=== PATIENT | male | born 1955 | race Hispanic/Latino ===

== ENCOUNTER 2017-08-17 06:30 | Inpatient (IN) | payer OTHER ==
--- NOTE | 2017-08-17 07:09 | XRay Report ---
FINAL REPORT EXAM: XR CHEST ROUTINE 2V HISTORY: Shortness of breath TECHNIQUE: PA and lateral views of the chest were submitted. FINDINGS: The heart is mildly enlarged. The lungs are not overtly congested. There is a small left-sided effusion. There are no localized infiltrates. The skeletal structures reveal disc degeneration in the thoracic spine IMPRESSION: Mild cardiomegaly. Small left-sided effusion. No localized infiltrates or congestion.
[2017-08-17 07:20] LABS: BUN/Creatinine Ratio 25; Blood Urea Nitrogen 28 mg/dL (9-20); Calcium 8.9 mg/dL (8.4-10.2); Hemolysis Index 4
[2017-08-17 07:23] LABS: Basophils # (Auto) 0.1 K/mm3 (0.0-0.1); Basophils % (Auto) 0.9 % (0.0-1.8); Eosinophils # (Auto) 0.2 K/mm3 (0.0-0.4); Eosinophils % (Auto) 1.8 % (0.0-4.3); Hematocrit 45.8 % (35.5-45.6); Hemoglobin 15.1 gm/dl (11.8-15.2); Lymphocytes # (Auto) 1.9 K/mm3 (1.2-5.4); Lymphocytes % (Auto) 20.9 % (13.4-35.0); Mean Corpuscular HGB Conc 33 % (32-34); Mean Corpuscular Hemoglobin 29 pg (28-32); Mean Corpuscular Volume 89 fl (84-94); Monocytes # (Auto) 1.1 K/mm3 (0.0-0.8); Monocytes % (Auto) 12.4 % (0.0-7.3); Platelet Count 242 K/mm3 (140-440); Red Blood Count 5.17 M/mm3 (3.65-5.03); Red Cell Distribution Width 14.2 % (13.2-15.2)
[2017-08-17] MEDS ORDERED: LASIX IV ONE (11:09)
[2017-08-17] MEDS ORDERED: LOPRESSOR IV ONE (11:12)
[2017-08-17 11:38] LABS: INR 1.28 (0.87-1.13); Partial Thromboplastin Time 31.1 Sec. (24.2-36.6)
--- NOTE | 2017-08-17 12:49 | Emergency Department Report ---
ED Shortness of Breath HPI - General Chief Complaint: Dyspnea/Respdistress Stated Complaint: LANRE Time Seen by Provider: 08/17/17 11:02 Source: patient, EMS Mode of arrival: Stretcher Limitations: Physical Limitation - History of Present Illness Initial Comments: Patient is a tra-woly-exs male with past medical history of CHF hypertension who is not on Lasix at this time who is presenting with shortness of breath. Patient states he has short shortness of breath with exertion with some chest tightness has been going on for approximate 4 days. Patient states that also at night while he is laying flat he has shortness of breath and feels a warm sensation in the chest that he initially was distributing to GERD however patient states that something more sinister going on at this time. Patient denies any fevers chills cough nausea vomiting at this time. - Related Data Home Medications Medication Instructions Recorded Confirmed Last Taken Insulin NPH, Human [NovoLIN N] 45 unit SUB-Q QAM 10/08/13 08/17/17 10/08/13 Insulin NPH, Human [NovoLIN N] 45 unit SUB-Q QPM 10/08/13 08/17/17 10/07/13 Previous Rx's Medication Instructions Recorded Last Taken Type Aspirin EC [Aspirin Enteric Coated 81 mg PO QDAY #30 tablet. 10/09/13 Unknown Rx TAB] Carvedilol [Coreg] 6.25 mg PO BID #60 tablet 10/09/13 Unknown Rx Lisinopril [Zestril TAB] 40 mg PO QDAY #30 tablet 10/10/13 Unknown Rx Lovastatin [Mevacor] 40 mg PO QDAY #30 tablet 10/10/13 Unknown Rx Allergies Allergy/AdvReac Type Severity Reaction Status Date / Time No Known Allergies Allergy Verified 08/17/17 06:49 ED Review of Systems ROS: Stated complaint: LANRE Other details as noted in HPI Comment: All other systems reviewed and negative ED Past Medical Hx - Past Medical History Hx Hypertension: Yes Hx Congestive Heart Failure: Yes Hx Diabetes: Yes Additional medical history: Hep C - Surgical History Additional Surgical History: Back Surgery - Social History Smoking Status: Never Smoker Substance Use Type: Alcohol - Medications Home Medications: Home Medications Medication Instructions Recorded Confirmed Last Taken Type Insulin NPH, Human [NovoLIN N] 45 unit SUB-Q QAM 10/08/13 08/17/17 10/08/13 History Insulin NPH, Human [NovoLIN N] 45 unit SUB-Q QPM 10/08/13 08/17/17 10/07/13 History Aspirin EC [Aspirin Enteric Coated 81 mg PO QDAY #30 tablet. 10/09/13 Unknown Rx TAB] Carvedilol [Coreg] 6.25 mg PO BID #60 tablet 10/09/13 08/17/17 Unknown Rx Lisinopril [Zestril TAB] 40 mg PO QDAY #30 tablet 10/10/13 08/17/17 Unknown Rx Lovastatin [Mevacor] 40 mg PO QDAY #30 tablet 10/10/13 08/17/17 Unknown Rx ED Physical Exam - General Limitations: Physical Limitation General appearance: alert, in no apparent distress - Head Head exam: Present: atraumatic, normocephalic - Eye Eye exam: Present: normal appearance - ENT ENT exam: Present: mucous membranes moist - Neck Neck exam: Present: normal inspection - Respiratory Respiratory exam: Present: rales. Absent: normal lung sounds bilaterally, respiratory distress, wheezes, rhonchi, stridor - Cardiovascular Cardiovascular Exam: Present: regular rate, normal rhythm, other (+1 pedal edema extending up to the ankles). Absent: systolic murmur, diastolic murmur, rubs, gallop - GI/Abdominal GI/Abdominal exam: Present: soft, normal bowel sounds. Absent: distended, tenderness, guarding, rebound, rigid - Rectal Rectal exam: Present: deferred - Extremities Exam Extremities exam: Present: normal inspection - Back Exam Back exam: Present: normal inspection - Neurological Exam Neurological exam: Present: alert, oriented X3 - Psychiatric Psychiatric exam: Present: normal affect, normal mood - Skin Skin exam: Present: warm, dry, intact, normal color. Absent: rash ED Course Vital Signs 08/17/17 08/17/17 08/17/17 06:46 11:20 11:34 Temperature 97.6 F Pulse Rate 91 H 137 H 137 H Respiratory 17 Rate Blood Pressure 141/98 122/99 Blood Pressure 122/99 [Right] O2 Sat by Pulse 100 95 Oximetry 08/17/17 08/17/17 08/17/17 11:36 11:46 12:00 Temperature Pulse Rate 134 H 142 H Respiratory 16 14 23 Rate Blood Pressure 128/94 122/99 Blood Pressure [Right] O2 Sat by Pulse 98 98 Oximetry 08/17/17 08/17/17 12:16 12:30 Temperature Pulse Rate 124 H 122 H Respiratory 13 22 Rate Blood Pressure 122/99 128/94 Blood Pressure [Right] O2 Sat by Pulse 96 94 Oximetry ED Medical Decision Making - Lab Data Result diagrams: 08/17/17 06:51 08/17/17 06:51 Lab Results 08/17/17 08/17/17 08/17/17 Range/Units 06:51 06:51 06:51 WBC 9.2 (4.5-11.0) K/mm3 RBC 5.17 H (3.65-5.03) M/mm3 Hgb 15.1 (11.8-15.2) gm/dl Hct 45.8 H (35.5-45.6) % MCV 89 (84-94) fl MCH 29 (28-32) pg MCHC 33 (32-34) % RDW 14.2 (13.2-15.2) % Plt Count 242 (140-440) K/mm3 Lymph % (Auto) 20.9 (13.4-35.0) % Burt % (Auto) 12.4 H (0.0-7.3) % Eos % (Auto) 1.8 (0.0-4.3) % Baso % (Auto) 0.9 (0.0-1.8) % Lymph # 1.9 (1.2-5.4) K/mm3 [place]urt # 1.1 H (0.0-0.8) K/mm3 Eos # 0.2 (0.0-0.4) K/mm3 Baso # 0.1 (0.0-0.1) K/mm3 Seg Neutrophils % 64.0 (40.0-70.0) % Seg Neutrophils # 5.9 (1.8-7.7) K/mm3 PT (12.2-14.9) Sec. INR (0.87-1.13) APTT (24.2-36.6) Sec. Sodium 138 (137-145) mmol/L Potassium 5.1 H (3.6-5.0) mmol/L Chloride 100.2 (98-107) mmol/L Carbon Dioxide 25 (22-30) mmol/L Anion Gap 18 mmol/L BUN 28 H (9-20) mg/dL Creatinine 1.1 (0.8-1.5) mg/dL Estimated GFR > 60 ml/min BUN/Creatinine Ratio 25 % Glucose 111 H (75-100) mg/dL Calcium 8.9 (8.4-10.2) mg/dL Troponin T 0.025 (0.00-0.029) ng/mL NT-Pro-B Natriuret Pep 49414 H (0-900) pg/mL 08/17/17 Range/Units 11:10 WBC (4.5-11.0) K/mm3 RBC (3.65-5.03) M/mm3 Hgb (11.8-15.2) gm/dl Hct (35.5-45.6) % MCV (84-94) fl MCH (28-32) pg MCHC (32-34) % RDW (13.2-15.2) % Plt Count (140-440) K/mm3 Lymph % (Auto) (13.4-35.0) % [place]urt % (Auto) (0.0-7.3) % Eos % (Auto) (0.0-4.3) % Baso % (Auto) (0.0-1.8) % Lymph # (1.2-5.4) K/mm3 Burt # (0.0-0.8) K/mm3 Eos # (0.0-0.4) K/mm3 Baso # (0.0-0.1) K/mm3 Seg Neutrophils % (40.0-70.0) % Seg Neutrophils # (1.8-7.7) K/mm3 PT 16.7 H (12.2-14.9) Sec. INR 1.28 H (0.87-1.13) APTT 31.1 (24.2-36.6) Sec. Sodium (137-145) mmol/L Potassium (3.6-5.0) mmol/L Chloride (98-107) mmol/L Carbon Dioxide (22-30) mmol/L Anion Gap mmol/L BUN (9-20) mg/dL Creatinine (0.8-1.5) mg/dL Estimated GFR ml/min BUN/Creatinine Ratio % Glucose (75-100) mg/dL Calcium (8.4-10.2) mg/dL Troponin T (0.00-0.029) ng/mL NT-Pro-B Natriuret Pep (0-900) pg/mL - EKG Data -: EKG Interpreted by Me - EKG Data Interpretation: other (EKG shows A. fib with RVR with a rate of 139, axis is rightward there is a left bundle branch block delay patient has T-wave inversions inferior lateral leads) - Radiology Data interpreted by me: Chest x-ray shows cardiomegaly with pulmonary vascular congestion and small right-sided pleural effusion - Medical Decision Making Patient was given a dose of Lasix here in the emergency department. Patient was given Lopressor 5 mg with decreased heart rate to approximately 110 was then subsequently then elevated again. We will try to start the patient on diltiazem drip. There was a slight delay with pharmacy with the diltiazem drip secondary to the computer system thinking that we did not have this medication. Patient will be admitted to the hospitalist service under Dr. Recio. Critical Care Time: Yes Critical care time in (mins) excluding proc time.: 30 Critical care attestation.: If time is entered above; I have spent that time in minutes in the direct care of this critically ill patient, excluding procedure time. ED Disposition Clinical Impression: Atrial fibrillation with RVR, Chest pain at rest CHF exacerbation Qualifiers: Heart failure type: unspecified Qualified Code(s): I50.9 - Heart failure, unspecified Disposition: OP ADMIT IP TO THIS HOSP Is pt being admited?: Yes Does the pt Need Aspirin: Yes Condition: Stable Instructions: Chest Pain (ED) Referrals: PRIMARY CARE, [Primary Care Provider] - 3-5 Days
[2017-08-17] MEDS ORDERED: ASPIRIN PO ONE (12:51)
[2017-08-17] MEDS ORDERED: CARDIZEM/D5W 100MG/100ML 100 MG/100 ML BAG IV ONE (12:55)
[2017-08-17] MEDS ORDERED: ATIVAN PO ONE (12:57)
[2017-08-17] MEDS ORDERED: CARDIZEM/D5W 100MG/100ML 100 MG/100 ML BAG IV SCH (13:00)
--- NOTE | 2017-08-17 13:00 | History and Physical Report ---
History of Present Illness Chief complaint: Its hard to breathe History of present illness: 62 YO Male with Diastolic CHF, HTN, Obesity, HCV, DM presents to ED for evaluation. Pt states that he has experienced shortness of breath for the past 4 days with persistently worsening symptoms over the past 2 days. Pt acknowledges Orthopnea/PND, Dypsnea on exertion, as well as tightness in his chest. Pt denies fever, chills, CP, Palpitations, NVD, Syncope, Prolonged travel /immobility, individual/family history of DVT/PE, unilateral leg swelling, calf pain. Pt seen and evaluated in ED and found to have CHF decompensation. Pt admitted to telemetry. Cardiology consulted in ED. Past History Past Medical History: diabetes, heart failure, hepatitis, hypertension Past Surgical History: Other (back surgery) Social history: single. denies: smoking, alcohol abuse, prescription drug abuse Family history: no significant family history (reviewed) Medications and Allergies Allergies Allergy/AdvReac Type Severity Reaction Status Date / Time No Known Allergies Allergy Verified 08/17/17 06:49 Home Medications Medication Instructions Recorded Confirmed Last Taken Type Insulin NPH, Human [NovoLIN N] 45 unit SUB-Q QAM 10/08/13 08/17/17 10/08/13 History Insulin NPH, Human [NovoLIN N] 45 unit SUB-Q QPM 10/08/13 08/17/17 10/07/13 History Aspirin EC [Aspirin Enteric Coated 81 mg PO QDAY #30 tablet. 10/09/13 Unknown Rx TAB] Carvedilol [Coreg] 6.25 mg PO BID #60 tablet 10/09/13 08/17/17 Unknown Rx Lisinopril [Zestril TAB] 40 mg PO QDAY #30 tablet 10/10/13 08/17/17 Unknown Rx Lovastatin [Mevacor] 40 mg PO QDAY #30 tablet 10/10/13 08/17/17 Unknown Rx Active Meds: Active Medications Diltiazem HCl (Cardizem/D5w 100mg/100ml) 100 mg in 100 mls @ 5 mls/hr IV TITR TIMMY; Protocol Review of Systems Constitutional: weight gain, no weight loss, no fever, no chills, no sweats Ears, nose, mouth and throat: no ear pain, no ear discharge, no tinnitis, no decreased hearing, no nose pain, no nasal congestion Cardiovascular: orthopnea, shortness of breath, dyspnea on exertion, paroxysmal nocturnal dyspnea, decreased exercise tolerance, no palpitations, no rapid/ irregular heart beat Respiratory: no cough, no cough with sputum, no excessive sputum, no hemoptysis Gastrointestinal: no nausea, no vomiting, no diarrhea, no constipation, no change in bowel habits Genitourinary Male: no hematuria, no flank pain, no discharge, no urinary frequency, no urinary hesitancy Rectal: no pain Musculoskeletal: no neck stiffness, no neck pain, no shooting arm pain, no arm numbness/tingling, no low back pain, no shooting leg pain Integumentary: no rash, no pruritis, no redness, no sores, no wounds, no jaundice Neurological: no transient paralysis, no weakness, no parathesias, no numbness, no tingling, no seizures, no syncope Psychiatric: no anxiety, no memory loss, no change in sleep habits, no sleep disturbances, no insomnia, no hypersomnia, no change in appetite Endocrine: no cold intolerance, no heat intolerance, no polyphagia, no excessive thirst, no polydipsia, no polyuria, no nocturia Hematologic/Lymphatic: no easy bruising, no easy bleeding, no lymphadenopathy, no lymphedema Allergic/Immunologic: no urticaria, no allergic rhinitis, no wheezing Exam - Constitutional Vitals: Temp Pulse Resp BP Pulse Ox 97.6 F 122 H 22 128/94 94 08/17/17 06:46 08/17/17 12:30 08/17/17 12:30 08/17/17 12:30 08/17/17 12:30 General appearance: Present: mild distress - EENT Eyes: Present: PERRL ENT: hearing intact, clear oral mucosa - Neck Neck: Present: supple, normal ROM - Respiratory Respiratory: bilateral: diminished - Cardiovascular Heart Sounds: Present: S1 & S2. Absent: rub, click - Extremities Extremities: pulses symmetrical, No edema Peripheral Pulses: within normal limits - Abdominal General gastrointestinal: Present: soft Male genitourinary: Present: normal - Integumentary Integumentary: Present: clear, warm, dry - Musculoskeletal Musculoskeletal: generalized weakness - Psychiatric Psychiatric: appropriate mood/affect, intact judgment & insight - Neurologic Neurologic: CNII-XII intact, moves all extremities Results - Labs CBC & Chem 7: 08/17/17 06:51 08/17/17 14:58 Labs: Abnormal lab results 08/17/17 08/17/17 08/17/17 Range/Units 06:51 06:51 06:51 RBC 5.17 H (3.65-5.03) M/mm3 Hct 45.8 H (35.5-45.6) % [place] % (Auto) 12.4 H (0.0-7.3) % [place] # 1.1 H (0.0-0.8) K/mm3 PT (12.2-14.9) Sec. INR (0.87-1.13) Potassium 5.1 H (3.6-5.0) mmol/L BUN 28 H (9-20) mg/dL Glucose 111 H (75-100) mg/dL NT-Pro-B Natriuret Pep 55800 H (0-900) pg/mL 08/17/17 Range/Units 11:10 RBC (3.65-5.03) M/mm3 Hct (35.5-45.6) % [place] % (Auto) (0.0-7.3) % [place] # (0.0-0.8) K/mm3 PT 16.7 H (12.2-14.9) Sec. INR 1.28 H (0.87-1.13) Potassium (3.6-5.0) mmol/L BUN (9-20) mg/dL Glucose (75-100) mg/dL NT-Pro-B Natriuret Pep (0-900) pg/mL Assessment and Plan - Patient Problems (1) Atrial fibrillation with RVR Current Visit: Yes Status: Acute Plan to address problem: IV Cardizem, change to AR cardizem, Cardiology consulted in ED, Admit to telemetry, continue rate control, (2) CHF exacerbation Current Visit: Yes Status: Acute Qualifiers: Heart failure type: diastolic Qualified Code(s): I50.33 - Acute on chronic diastolic (congestive) heart failure Plan to address problem: Cardiology consulted in ED, admit to telemetry, Strict I/O, diuresis, daily weight, Chest X ray,afterload reduction, thyroid panel, anticoagulation as per cardiology team. (3) Hypertension Current Visit: No Status: Chronic Qualifiers: Hypertension type: essential hypertension Qualified Code(s): I10 - Essential (primary) hypertension Plan to address problem: monitor bp q shift, resume prehospital antihypertensive therapy, continue medical management. (4) Obesity Current Visit: No Status: Chronic Qualifiers: Body mass index: BMI 31.0-31.9 Plan to address problem: Balanced diet, increased physical activity at discharge. (5) Diabetes mellitus Current Visit: No Status: Chronic Plan to address problem: consistent carbohydrate diet, insulin, accu check (6) DVT prophylaxis Current Visit: Yes Status: Acute Plan to address problem: SCD to BLE while in bed
[2017-08-17] MEDS ORDERED: SODIUM CHLORIDE FLUSH SYRINGE 10 ML IV PRN (13:07)
[2017-08-17] MEDS ORDERED: TYLENOL PO PRN (13:07)
[2017-08-17] MEDS ORDERED: ZOFRAN IV PRN (13:07)
[2017-08-17] MEDS ORDERED: PROVENTIL IH PRN (13:07)
[2017-08-17] MEDS ORDERED: D50W (25GM) Syringe IV PRN (15:30)
[2017-08-17] MEDS: CARDIZEM PO SCH ×3 (18:12→23:42)
[2017-08-17 18:49] LABS: Free T4 (Free Thyroxine) 1.35 ng/dL (0.76-1.46)
--- NOTE | 2017-08-17 18:52 | Emergency Department Report ---
Blank Doc - Documentation Documentation: Patient was a code met to the floor. Patient became hypoglycemic with a blood sugar of 28 and his IV access was not working. I attended to the patient on the floor. I was able to place a 20-gauge IV in the right antecubital area using ultrasound guidance. Patient's blood sugar did return to the 80s after the D50. Patient tolerated procedure well and was in stable condition at the time that I left the patient's bedside.
[2017-08-17] MEDS: LASIX IV SCH (19:30)
[2017-08-17] MEDS ORDERED: SODIUM CHLORIDE FLUSH SYRINGE 10 ML IV SCH (22:00)
[2017-08-17] MEDS: PRAVACHOL PO SCH (22:44)
[2017-08-17] MEDS: COREG PO SCH (22:44)
[2017-08-18] MEDS ORDERED: MILK OF MAGNESIA PO PRN (01:09)
[2017-08-18] MEDS: XANAX PO PRN (04:18)
[2017-08-18] MEDS: LASIX IV SCH ×2 (06:12→20:02)
[2017-08-18] MEDS: CARDIZEM PO SCH ×3 (06:12→18:00)
[2017-08-18] MEDS: COREG PO SCH ×2 (08:15→22:17)
[2017-08-18] MEDS ORDERED: ZESTRIL PO SCH ×2 (10:00→11:54)
[2017-08-18] MEDS ORDERED: LOVASTATIN 40 MG PO SCH (10:00)
[2017-08-18] MEDS: HALFPRIN EC PO SCH (10:55)
--- NOTE | 2017-08-18 11:43 | Progress Note ---
Assessment and Plan Assessment and Plan - Patient Problems (1) Atrial fibrillation with RVR Current Visit: Yes Status: Acute Plan to address problem: PO Cardizem, HR -117 and irregular, Cardiology consulted in ED, Telemetry, continue rate control, Echo for EF (2) CHF exacerbation Current Visit: Yes Status: Acute Qualifiers: Heart failure type: diastolic Qualified Code(s): I50.33 - Acute on chronic diastolic (congestive) heart failure Plan to address problem: Cardiology consulted ,telemetry, Strict I/O, diuresis, daily weight, Chest X ray ,afterload reduction, thyroid panel, anticoagulation as per cardiology team. Check EKG (3) Hypertension Current Visit: No Status: Chronic Qualifiers: Hypertension type: essential hypertension Qualified Code(s): I10 - Essential (primary) hypertension Plan to address problem: monitor bp q shift, resume prehospital antihypertensive therapy, continue medical management. (4) Obesity Current Visit: No Status: Chronic Qualifiers: Body mass index: BMI 31.0-31.9 Plan to address problem: Balanced diet, increased physical activity at discharge. (5) Diabetes mellitus Current Visit: No Status: Chronic Plan to address problem: consistent carbohydrate diet, insulin, accu check (6) DVT prophylaxis Current Visit: Yes Status: Acute Plan to address problem: SCD to BLE while in bed DispossitionProbable discharge tomorrow if rate controlled and cleared by Cardiology Subjective Date of service: 08/18/17 Principal diagnosis: A fib with rvr Interval history: Still has palpitations Objective - Constitutional Vitals: Vital Signs - 12hr 08/17/17 08/18/17 08/18/17 23:42 00:30 00:40 Temperature 94.8 F L Pulse Rate 94 H 59 L Respiratory 20 Rate Blood Pressure 125/86 113/79 Blood Pressure [Right] O2 Sat by Pulse 100 Oximetry 08/18/17 08/18/17 08/18/17 04:08 06:12 08:06 Temperature 98.0 F Pulse Rate 99 H 97 H 87 Respiratory 24 20 Rate Blood Pressure 115/81 115/81 88/62 Blood Pressure [Right] O2 Sat by Pulse 96 96 Oximetry 08/18/17 08/18/17 08:10 09:51 Temperature 98.0 F Pulse Rate 104 H Respiratory 20 Rate Blood Pressure Blood Pressure 91/69 [Right] O2 Sat by Pulse 97 93 Oximetry General appearance: Present: no acute distress, well-nourished - EENT Eyes: PERRL, EOM intact ENT: hearing intact, clear oral mucosa Ears: bilateral: normal - Neck Neck: supple, normal ROM - Respiratory Respiratory effort: normal Respiratory: bilateral: CTA - Breasts Breasts: normal - Cardiovascular Heart rate: 80 Rhythm: regular Heart Sounds: Present: S1 & S2. Absent: gallop, rub Extremities: no ischemia, pulses intact, No edema, normal color, Full ROM - Gastrointestinal General gastrointestinal: Present: soft, non-tender, non-distended, normal bowel sounds - Genitourinary Male genitourinary: normal - Integumentary Integumentary: clear, warm, dry - Musculoskeletal Musculoskeletal: 1, strength equal bilaterally - Neurologic Neurologic: moves all extremities - Psychiatric Psychiatric: memory intact, appropriate mood/affect, intact judgment & insight - Labs CBC & Chem 7: 08/17/17 06:51 08/17/17 14:58 Labs: Abnormal lab results 08/17/17 08/17/17 08/17/17 Range/Units 06:51 14:57 14:58 Glucose 47 L (75-100) mg/dL POC Glucose < 40 L (70-105) NT-Pro-B Natriuret Pep 05623 H (0-900) pg/mL 08/17/17 08/17/17 08/17/17 Range/Units 15:35 18:33 20:49 Glucose (75-100) mg/dL POC Glucose 123 H < 40 L 179 H (70-105) NT-Pro-B Natriuret Pep (0-900) pg/mL 08/18/17 08/18/17 Range/Units 03:37 06:40 Glucose (75-100) mg/dL POC Glucose 381 H 204 H (70-105) NT-Pro-B Natriuret Pep (0-900) pg/mL - Imaging and cardiology EKG: report reviewed
[2017-08-18] MEDS ORDERED: ZOFRAN IV PRN (11:51)
[2017-08-18] MEDS ORDERED: SODIUM CHLORIDE FLUSH SYRINGE 10 ML IV PRN (11:51)
[2017-08-18] MEDS ORDERED: TYLENOL PO PRN (11:51)
--- NOTE | 2017-08-18 12:33 | Consultation ---
History of Present Illness Consult date: 08/18/17 Consult reason: atrial fibrillation, congestive heart failure History of present illness: This is a 62yr old male who gives a history of hypertension and diabetes who is admitted with shortness of breath and rapid atrial fibrillation. He associates shortness of breath with coughs, chest pain, palpitations and lower extremity edema over the last several days. A chest xray reports mild cardiomegaly with a small left side pleural effusion. His ECG shows rapid atrial fibrillation with a left bundle branch block. The duration of his atrial fibrillation is unknown. TSH is normal. Patient denies history of arrhythmias. Patient underwent extensive cardiac workup in 2013. A cardiac cath reports normal coronaries with a preserved ejection fraction. Most importantly an echocardiogram showed a dilated left atrium with a normal left ventricular systolic function, ejection fraction 55%. Past History Social history: single Medications and Allergies Allergies Allergy/AdvReac Type Severity Reaction Status Date / Time No Known Allergies Allergy Verified 08/17/17 06:49 Home Medications Medication Instructions Recorded Confirmed Last Taken Type Insulin NPH, Human [NovoLIN N] 45 unit SUB-Q QAM 10/08/13 08/17/17 10/08/13 History Insulin NPH, Human [NovoLIN N] 45 unit SUB-Q QPM 10/08/13 08/17/17 10/07/13 History Aspirin EC [Aspirin Enteric Coated 81 mg PO QDAY #30 tablet. 10/09/13 Unknown Rx TAB] Carvedilol [Coreg] 6.25 mg PO BID #60 tablet 10/09/13 08/17/17 Unknown Rx Lisinopril [Zestril TAB] 40 mg PO QDAY #30 tablet 10/10/13 08/17/17 Unknown Rx Lovastatin [Mevacor] 40 mg PO QDAY #30 tablet 10/10/13 08/17/17 Unknown Rx Active Meds: Active Medications Acetaminophen (Tylenol) 650 mg PO Q4H PRN PRN Reason: Pain MILD(1-3)/Fever >100.5/COLON Acetaminophen (Tylenol) 650 mg PO Q4H PRN PRN Reason: Pain MILD(1-3)/Fever >100.5/COLON Albuterol (Proventil) 2.5 mg IH Q4HRT PRN PRN Reason: Shortness Of Breath Alprazolam (Xanax) 0.25 mg PO Q8H PRN PRN Reason: Anxiety Last Admin: 08/18/17 04:18 Dose: 0.25 mg Aspirin (Halfprin Ec) 81 mg PO QDAY [facility] Last Admin: 08/18/17 10:55 Dose: 81 mg Carvedilol (Coreg) 6.25 mg PO BID [facility] Last Admin: 08/18/17 08:15 Dose: Not Given Clonazepam (Klonopin) 1 mg PO BID [facility] Dextrose (D50w (25gm) Syringe) 50 ml IV PRN PRN PRN Reason: Hypoglycemia Last Admin: 08/17/17 15:30 Dose: 50 ml Diltiazem HCl (Cardizem) 30 mg PO Q6HR [facility] Last Admin: 08/18/17 06:12 Dose: 30 mg Furosemide (Lasix) 40 mg IV BID@0600,1800 [facility] Last Admin: 08/18/17 06:12 Dose: 40 mg Insulin Human NPH (Humulin N) 45 unit SUB-Q QAMDIAB [facility] Last Admin: 08/18/17 08:00 Dose: 45 unit Insulin Human NPH (Humulin N) 45 unit SUB-Q QPMDIAB [facility] Last Admin: 08/17/17 18:13 Dose: Not Given Lisinopril (Zestril) 10 mg PO QDAY [facility] Magnesium Hydroxide (Milk Of Magnesia) 30 ml PO Q4H PRN PRN Reason: Constipation Last Admin: 08/18/17 02:47 Dose: 30 ml Ondansetron HCl (Zofran) 4 mg IV Q8H PRN PRN Reason: Nausea And Vomiting Ondansetron HCl (Zofran) 4 mg IV Q8H PRN PRN Reason: Nausea And Vomiting Oxycodone/Acetaminophen (Percocet 5/325) 1 tab PO Q4H PRN PRN Reason: Pain, Moderate (4-6) Pravastatin Sodium (Pravachol) 40 mg PO QHS [facility] Last Admin: 08/17/17 22:44 Dose: 40 mg Sodium Chloride (Sodium Chloride Flush Syringe 10 Ml) 10 ml IV BID [facility] Last Admin: 08/17/17 22:44 Dose: 10 ml Sodium Chloride (Sodium Chloride Flush Syringe 10 Ml) 10 ml IV PRN PRN PRN Reason: LINE FLUSH Sodium Chloride (Sodium Chloride Flush Syringe 10 Ml) 10 ml IV BID [facility] Sodium Chloride (Sodium Chloride Flush Syringe 10 Ml) 10 ml IV PRN PRN PRN Reason: LINE FLUSH Zolpidem Tartrate (Ambien) 10 mg PO QHS [facility] Physical Examination Vital Signs Pulse BP Pulse Ox 126 H 141/98 87 08/17/17 06:31 08/17/17 06:31 08/17/17 06:31 General appearance: no acute distress HEENT: Positive: PERRL Cardiac: Positive: irregularly irregular Lungs: Positive: Decreased Breath Sounds Results 08/17/17 06:51 08/17/17 14:58 Comprehensive Metabolic Panel 08/17/17 Range/Units 14:58 Glucose 47 L (75-100) mg/dL Assessment and Plan Volume overload Atrial fibrillation, uncertain duration normal TSH Diabetes Hypertension [facility] 2013: normal coronaries Echo 2013: dilated left atrium, normal LVEF
[2017-08-18] MEDS: COUMADIN PO SCH (20:01)
[2017-08-18] MEDS: MILRINONE-D5W 20 MG/100 ML 20 MG/100 ML BAG IV SCH (20:02)
[2017-08-18] MEDS: AMBIEN PO SCH (22:15)
[2017-08-18] MEDS: PRAVACHOL PO SCH (22:15)
[2017-08-18] MEDS: PERCOCET 5/325 PO PRN (22:15)
[2017-08-18] MEDS: SODIUM CHLORIDE FLUSH SYRINGE 10 ML IV SCH (22:18)
[2017-08-19] MEDS: LASIX IV SCH ×2 (05:54→19:22)
[2017-08-19] MEDS: MILRINONE-D5W 20 MG/100 ML 20 MG/100 ML BAG IV SCH ×2 (05:54→16:48)
[2017-08-19] MEDS: CARDIZEM PO SCH ×2 (05:55)
--- NOTE | 2017-08-19 08:58 | Progress Note ---
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 Target INR of 2-3. Diabetes Hypertension [facility] 2014: normal coronaries Recommendations: Continue aggressive heart failure treatment with trial of intravenous milrinone and intravenous diuretics. Optimal rate control and oral anticoagualtion for atrial fibrillation. Salt/fluid restriction Daily weight Further cardiac evaluation and management will depend on clinical course, ischemic cardiac workup once his heart failure is resolved. Subjective Date of service: 08/19/17 Principal diagnosis: A fib with rvr Interval history: Patient reports his breathing has improved. Continues on IV milrinone; reports he is diuresing well. Objective Vital Signs Temp Pulse Resp BP Pulse Ox 08/19/17 07:42 98.4 F 60 20 93/68 94 08/19/17 05:55 61 104/67 08/19/17 05:05 131 H 08/19/17 04:26 98.1 F 61 18 104/67 94 08/19/17 00:17 96 08/18/17 23:55 98.3 F 64 18 113/76 88 08/18/17 22:17 42 L 103/85 08/18/17 22:00 96 08/18/17 19:19 98.4 F 42 L 18 103/85 93 08/18/17 16:37 98.2 F 43 L 20 112/94 95 08/18/17 12:36 108 H 97/70 08/18/17 11:46 97.4 F L 52 L 20 97/70 97 08/18/17 09:51 93 - Physical Examination General: No Apparent Distress HEENT: Positive: PERRL Cardiac: Positive: irregularly irregular Lungs: Positive: Decreased Breath Sounds Neuro: Positive: Grossly Intact Extremities: Present: +2 Edema
[2017-08-19 10:21] LABS: BUN/Creatinine Ratio 26; Blood Urea Nitrogen 23 mg/dL (9-20); Hemolysis Index 12
[2017-08-19] MEDS: COREG PO SCH ×2 (10:27→21:30)
[2017-08-19] MEDS: HALFPRIN EC PO SCH (10:27)
[2017-08-19] MEDS: ZAROXOLYN PO SCH (10:27)
[2017-08-19] MEDS: K-DUR PO SCH (10:27)
[2017-08-19] MEDS: PERCOCET 5/325 PO PRN ×2 (16:06→21:26)
[2017-08-19] MEDS: LANOXIN IV SCH (16:07)
[2017-08-19] MEDS: AMBIEN PO SCH (21:26)
[2017-08-19] MEDS: PRAVACHOL PO SCH (21:27)
[2017-08-19] MEDS: SODIUM CHLORIDE FLUSH SYRINGE 10 ML IV SCH (21:31)
[2017-08-20] MEDS: LANOXIN IV SCH ×2 (01:35→05:52)
[2017-08-20] MEDS: MILRINONE-D5W 20 MG/100 ML 20 MG/100 ML BAG IV SCH ×3 (01:45→22:34)
--- NOTE | 2017-08-20 02:26 | Progress Note ---
Assessment and Plan / Atrial fibrillation with RVR Continue coreg, and warfarin (target INR 2-3) Change diltiazem to digoxin for rate control NEVIN guided cardioversion next week if heart rate remains uncontrolled /CHF exacerbation Cardiology consulted, Continue milrinone and IV diuresis / Hypertension monitor bp q shift, adjust med as need / Obesity Balanced diet recommendation at discharge. / Diabetes mellitus consistent carbohydrate diet, insulin, accu check / DVT prophylaxis SCD to BLE while in bed Physical exam: General appearance: Present: no acute distress, well-nourished - EENT Eyes: PERRL, EOM intact ENT: hearing intact, clear oral mucosa Ears: bilateral: normal - Neck Neck: supple, normal ROM - Respiratory Respiratory effort: normal Respiratory: bilateral: CTA - Breasts Breasts: normal - Cardiovascular Heart rate: 80 Rhythm: regular Heart Sounds: Present: S1 & S2. Absent: gallop, rub Extremities: no ischemia, pulses intact, No edema, normal color, Full ROM - Gastrointestinal General gastrointestinal: Present: soft, non-tender, non-distended, normal bowel sounds - Genitourinary Male genitourinary: normal - Integumentary Integumentary: clear, warm, dry - Musculoskeletal Musculoskeletal: 1, strength equal bilaterally - Neurologic Neurologic: moves all extremities - Psychiatric Psychiatric: memory intact, appropriate mood/affect, intact judgment & insight Subjective Date of service: 08/19/17 Principal diagnosis: A fib with rvr Interval history: pt seen and examined c/o SOB on minimal exertion Objective - Constitutional Vitals: Vital Signs - 12hr 08/19/17 08/19/17 08/19/17 15:37 15:38 15:44 Temperature 98.0 F Pulse Rate 116 H 101 H 85 Respiratory 20 92 H Rate Blood Pressure 92/58 O2 Sat by Pulse 92 85 98 Oximetry 08/19/17 08/19/17 08/19/17 18:15 19:34 21:30 Temperature 98.3 F Pulse Rate 121 H 101 H 101 H Respiratory 18 Rate Blood Pressure 85/46 85/46 O2 Sat by Pulse 94 Oximetry 08/19/17 08/20/17 23:24 01:35 Temperature 98.1 F Pulse Rate 78 104 H Respiratory 18 Rate Blood Pressure 112/77 O2 Sat by Pulse 90 Oximetry - Labs CBC & Chem 7: 08/17/17 06:51 08/19/17 09:44 Labs: Abnormal lab results 08/18/17 08/19/17 08/19/17 Range/Units 21:32 09:44 11:11 Chloride 97.9 L (98-107) mmol/L Carbon Dioxide 31 H (22-30) mmol/L BUN 23 H (9-20) mg/dL Glucose 200 H (75-100) mg/dL POC Glucose 231 H 197 H (70-105) Calcium 8.0 L (8.4-10.2) mg/dL 08/19/17 Range/Units 15:39 Chloride (98-107) mmol/L Carbon Dioxide (22-30) mmol/L BUN (9-20) mg/dL Glucose (75-100) mg/dL POC Glucose 167 H (70-105) Calcium (8.4-10.2) mg/dL
[2017-08-20] MEDS: LASIX IV SCH ×2 (05:51→17:11)
[2017-08-20 06:25] LABS: INR 1.15 (0.87-1.13)
[2017-08-20] MEDS: SODIUM CHLORIDE FLUSH SYRINGE 10 ML IV SCH (09:25)
[2017-08-20] MEDS: K-DUR PO SCH (09:30)
[2017-08-20] MEDS: ZAROXOLYN PO SCH (09:30)
[2017-08-20] MEDS: HALFPRIN EC PO SCH (09:30)
[2017-08-20] MEDS: COREG PO SCH ×2 (09:31→22:36)
[2017-08-20] MEDS ORDERED: ZESTRIL PO SCH (10:00)
[2017-08-20] MEDS ORDERED: LANOXIN IV ONE (10:01)
--- NOTE | 2017-08-20 10:08 | Progress Note ---
Assessment and Plan - Patient Problems (1) Cardiomyopathy Current Visit: Yes Status: Acute Subjective Date of service: 08/20/17 Principal diagnosis: A fib with rvr Interval history: STILL SOB & EDEMA Objective Vital Signs Temp Pulse Resp BP Pulse Ox 08/20/17 09:32 111 H 127/93 08/20/17 09:31 111 H 127/93 08/20/17 07:37 98.6 F 62 20 127/93 97 08/20/17 06:52 116 H 08/20/17 05:52 103 H 08/20/17 01:35 104 H 08/19/17 23:24 98.1 F 78 18 112/77 90 08/19/17 21:30 101 H 85/46 08/19/17 19:34 98.3 F 101 H 18 85/46 94 08/19/17 18:15 121 H 08/19/17 15:44 85 98 08/19/17 15:38 101 H 92 H 85 08/19/17 15:37 98.0 F 116 H 20 92/58 92 08/19/17 11:05 98.0 F 65 20 131/78 94 - Physical Examination General: No Apparent Distress HEENT: Positive: PERRL Neck: Positive: JVD/HJR Cardiac: Positive: Irregularly Regular Lungs: Positive: clear to auscultation Neuro: Positive: Grossly Intact Abdomen: Positive: Unremarkable Extremities: Present: +1 Edema, +2 Edema - Labs and Meds Coagulation 08/20/17 Range/Units 05:41 PT 15.3 H (12.2-14.9) Sec. INR 1.15 H (0.87-1.13) Comprehensive Metabolic Panel 08/19/17 Range/Units 09:44 Sodium 140 (137-145) mmol/L Potassium 4.1 (3.6-5.0) mmol/L Chloride 97.9 L (98-107) mmol/L Carbon Dioxide 31 H (22-30) mmol/L BUN 23 H (9-20) mg/dL Creatinine 0.9 (0.8-1.5) mg/dL Glucose 200 H (75-100) mg/dL Calcium 8.0 L (8.4-10.2) mg/dL - Imaging and Cardiology EKG: report reviewed
[2017-08-20 11:34] LABS: BUN/Creatinine Ratio 26; Blood Urea Nitrogen 21 mg/dL (9-20); Hemolysis Index 88
[2017-08-20] MEDS: ZESTRIL PO SCH (13:41)
[2017-08-20] MEDS: PERCOCET 5/325 PO PRN ×2 (13:53→22:35)
[2017-08-20] MEDS ORDERED: LANOXIN IV NR (14:00)
[2017-08-20] MEDS: COUMADIN PO SCH (17:16)
[2017-08-20] MEDS: AMBIEN PO SCH (22:34)
[2017-08-20] MEDS: PRAVACHOL PO SCH (22:34)
[2017-08-20] MEDS: XANAX PO PRN (22:35)
[2017-08-21] MEDS: LASIX IV SCH ×2 (06:15→18:18)
[2017-08-21] MEDS: MILRINONE-D5W 20 MG/100 ML 20 MG/100 ML BAG IV SCH (08:28)
[2017-08-21 08:33] LABS: INR 1.17 (0.87-1.13)
[2017-08-21] MEDS: SODIUM CHLORIDE FLUSH SYRINGE 10 ML IV SCH ×2 (09:28→12:28)
--- NOTE | 2017-08-21 13:33 | Progress Note ---
Assessment and Plan / Atrial fibrillation with RVR Continue coreg, and warfarin (target INR 2-3) stopped diltiazem, plan to give one dose digoxin iv today NEVIN guided cardioversion next week if heart rate remains uncontrolled /Acute CHF exacerbation Cardiology consulted, Continue milrinone and IV diuresis 2d echo showed Ef 15%, had normal cardiac function on 2013 / Hypertension monitor bp q shift, adjust meds as needed / Obesity Balanced diet recommendation at discharge. / Diabetes mellitus consistent carbohydrate diet, insulin, accu check / DVT prophylaxis SCD to BLE while in bed Brief history: This is a 62yr old male with a history of hypertension and diabetes who is admitted with shortness of breath and rapid atrial fibrillation. A chest xray in the ER reports mild cardiomegaly with a small left side pleural effusion. His ECG showed rapid atrial fibrillation with a left bundle branch block. In 2013 A cardiac cath reports normal coronaries with a preserved ejection fraction. Echo obtain on this admission ahowed a 4-chamber dilated CMP with severe detrioration of LV systolic function since 2013, EF now 15%. Cardiology consulted and started in IV milrinone for HF treatment. Radiological data: CXR: Mild left pleural effusion and mild cardiomegaly 2d echo: Ef 15% Physical exam: General appearance: Present: no acute distress, well-nourished - EENT Eyes: PERRL, EOM intact ENT: hearing intact, clear oral mucosa Ears: bilateral: normal - Neck Neck: supple, normal ROM - Respiratory Respiratory effort: normal Respiratory: bilateral: CTA - Breasts Breasts: normal - Cardiovascular Heart rate: 80 Rhythm: regular Heart Sounds: Present: S1 & S2. Absent: gallop, rub Extremities: no ischemia, pulses intact, No edema, normal color, Full ROM - Gastrointestinal General gastrointestinal: Present: soft, non-tender, non-distended, normal bowel sounds - Genitourinary Male genitourinary: normal - Integumentary Integumentary: clear, warm, dry - Musculoskeletal Musculoskeletal: 1, strength equal bilaterally - Neurologic Neurologic: moves all extremities - Psychiatric Psychiatric: memory intact, appropriate mood/affect, intact judgment & insight Subjective Date of service: 08/20/17 Principal diagnosis: A fib with rvr Interval history: pt seen and examined states breathing lot better no new issue, denies chest pain Objective - Constitutional Vitals: Vital Signs - 12hr 05/10/0308/21/17 08/21/17 03:52 05:42 07:43 Temperature 98.0 F Pulse Rate 105 H 97 H Pulse Rate [ Apical] Respiratory 20 Rate Blood Pressure 116/69 118/82 O2 Sat by Pulse 94 Oximetry 08/21/17 08/21/17 08/21/17 08:24 08:42 11:28 Temperature 97.6 F Pulse Rate 103 H Pulse Rate [ 102 H Apical] Respiratory 20 Rate Blood Pressure 110/76 O2 Sat by Pulse 96 94 Oximetry 08/21/17 12:46 Temperature Pulse Rate 123 H Pulse Rate [ Apical] Respiratory Rate Blood Pressure O2 Sat by Pulse Oximetry - Labs CBC & Chem 7: 08/17/17 06:51 08/20/17 10:38 Labs: Abnormal lab results 08/19/17 08/20/17 08/21/17 Range/Units 21:14 17:36 07:55 PT 15.6 H (12.2-14.9) Sec. INR 1.17 H (0.87-1.13) POC Glucose 209 H 116 H (70-105)
[2017-08-21] MEDS: COREG PO SCH ×2 (13:37→22:25)
[2017-08-21] MEDS: ZAROXOLYN PO SCH (13:37)
[2017-08-21] MEDS: ZESTRIL PO SCH (13:37)
[2017-08-21] MEDS: HALFPRIN EC PO SCH (13:37)
[2017-08-21] MEDS: K-DUR PO SCH (13:38)
[2017-08-21] MEDS: XANAX PO PRN (13:40)
--- NOTE | 2017-08-21 13:42 | Progress Note ---
Assessment and Plan / Atrial fibrillation with RVR Continue coreg, and warfarin (target INR 2-3) stopped diltiazem, given digoxin iv, last dose was 08/20 NEVIN guided cardioversion next week if heart rate remains uncontrolled /Acute CHF exacerbation Cardiology consulted, Continue milrinone and IV diuresis 2d echo showed Ef 15%, had normal cardiac function on 2013 / Hypertension monitor bp q shift, adjust meds as needed / Obesity Balanced diet recommendation at discharge. / Diabetes mellitus consistent carbohydrate diet, insulin, accu check / DVT prophylaxis SCD to BLE while in bed Brief history: This is a 62yr old male with a history of hypertension and diabetes who is admitted with shortness of breath and rapid atrial fibrillation. A chest xray in the ER reports mild cardiomegaly with a small left side pleural effusion. His ECG showed rapid atrial fibrillation with a left bundle branch block. In 2013 A cardiac cath reports normal coronaries with a preserved ejection fraction. Echo obtain on this admission ahowed a 4-chamber dilated CMP with severe detrioration of LV systolic function since 2013, EF now 15%. Cardiology consulted and started in IV milrinone for HF treatment. Radiological data: CXR: Mild left pleural effusion and mild cardiomegaly 2d echo: Ef 15% Physical exam: General appearance: Present: no acute distress, well-nourished - EENT Eyes: PERRL, EOM intact ENT: hearing intact, clear oral mucosa Ears: bilateral: normal - Neck Neck: supple, normal ROM - Respiratory Respiratory effort: normal Respiratory: bilateral: CTA - Breasts Breasts: normal - Cardiovascular Heart rate: 80 Rhythm: regular Heart Sounds: Present: S1 & S2. Absent: gallop, rub Extremities: no ischemia, pulses intact, No edema, normal color, Full ROM - Gastrointestinal General gastrointestinal: Present: soft, non-tender, non-distended, normal bowel sounds - Genitourinary Male genitourinary: normal - Integumentary Integumentary: clear, warm, dry - Musculoskeletal Musculoskeletal: 1, strength equal bilaterally - Neurologic Neurologic: moves all extremities - Psychiatric Psychiatric: memory intact, appropriate mood/affect, intact judgment & insight Subjective Date of service: 08/21/17 Principal diagnosis: A fib with rvr Interval history: pt seen and examined states breathing lot better no new issue, denies chest pain Objective - Constitutional Vitals: Vital Signs - 12hr 08/21/17 08/21/17 08/21/17 03:52 05:42 07:43 Temperature 98.0 F Pulse Rate 105 H 97 H Pulse Rate [ Apical] Respiratory 20 Rate Blood Pressure 116/69 118/82 O2 Sat by Pulse 94 Oximetry 08/21/17 08/21/17 08/21/17 08:24 08:42 11:28 Temperature 97.6 F Pulse Rate 103 H Pulse Rate [ 102 H Apical] Respiratory 20 Rate Blood Pressure 110/76 O2 Sat by Pulse 96 94 Oximetry 08/21/17 08/21/17 12:46 13:37 Temperature Pulse Rate 123 H 103 H Pulse Rate [ Apical] Respiratory Rate Blood Pressure 110/76 O2 Sat by Pulse Oximetry - Labs CBC & Chem 7: 08/17/17 06:51 08/20/17 10:38 Labs: Abnormal lab results 08/19/17 08/20/17 08/21/17 Range/Units 21:14 17:36 07:55 PT 15.6 H (12.2-14.9) Sec. INR 1.17 H (0.87-1.13) POC Glucose 209 H 116 H (70-105)
--- NOTE | 2017-08-21 14:02 | Progress Note ---
Assessment and Plan - Patient Problems (1) Cardiomyopathy Current Visit: Yes Status: Acute (2) Atrial fibrillation with RVR Current Visit: Yes Status: Acute (3) Diabetes mellitus Current Visit: No Status: Chronic (4) Heart failure Current Visit: No Status: Chronic (5) Hypertension Current Visit: No Status: Chronic Qualifiers: Hypertension type: essential hypertension Qualified Code(s): I10 - Essential (primary) hypertension Subjective Date of service: 08/21/17 Principal diagnosis: A fib with rvr Interval history: STILL SOB & EDEMA Objective Vital Signs Temp Pulse Pulse Resp BP BP Pulse Ox 08/21/17 13:37 103 H 110/76 08/21/17 12:46 123 H 08/21/17 11:28 97.6 F 103 H 20 110/76 94 08/21/17 08:42 102 H 08/21/17 08:24 96 08/21/17 07:43 98.0 F 97 H 20 118/82 94 08/21/17 05:42 105 H 08/21/17 03:52 116/69 08/21/17 01:06 97 F L 90 18 107/72 92 08/21/17 00:06 107/72 08/20/17 22:36 111 H 102/60 08/20/17 21:39 114 H 102/60 92 08/20/17 20:20 98.9 F 81 20 95/56 95 08/20/17 19:11 74 95/56 95 08/20/17 15:47 97.9 F 113 H 20 115/69 93 - Physical Examination General: No Apparent Distress HEENT: Positive: PERRL Neck: Positive: JVD/HJR Cardiac: Positive: Reg Rate and Rhythm Lungs: Positive: clear to auscultation Neuro: Positive: Grossly Intact Abdomen: Positive: Unremarkable Extremities: Present: +1 Edema, +2 Edema - Labs and Meds Coagulation 08/21/17 Range/Units 07:55 PT 15.6 H (12.2-14.9) Sec. INR 1.17 H (0.87-1.13) - Imaging and Cardiology EKG: report reviewed
[2017-08-21] MEDS ORDERED: LANOXIN IV ONE (15:00)
[2017-08-21] MEDS: PERCOCET 5/325 PO PRN (15:56)
[2017-08-21] MEDS: COUMADIN PO SCH ×2 (15:57→15:59)
[2017-08-21] MEDS: AMBIEN PO SCH (22:25)
[2017-08-21] MEDS: PRAVACHOL PO SCH (22:25)
[2017-08-22] MEDS: LASIX IV SCH ×2 (06:28→18:59)
[2017-08-22 06:38] LABS: Basophils # (Auto) 0.1 K/mm3 (0.0-0.1); Basophils % (Auto) 0.9 % (0.0-1.8); Eosinophils # (Auto) 0.4 K/mm3 (0.0-0.4); Eosinophils % (Auto) 5.4 % (0.0-4.3); Hematocrit 45.2 % (35.5-45.6); Hemoglobin 14.4 gm/dl (11.8-15.2); Lymphocytes # (Auto) 2.4 K/mm3 (1.2-5.4); Lymphocytes % (Auto) 30.3 % (13.4-35.0); Mean Corpuscular HGB Conc 32 % (32-34); Mean Corpuscular Hemoglobin 28 pg (28-32); Mean Corpuscular Volume 89 fl (84-94); Monocytes % (Auto) 13.3 % (0.0-7.3); Platelet Count 225 K/mm3 (140-440); Red Blood Count 5.07 M/mm3 (3.65-5.03)
[2017-08-22 06:47] LABS: INR 1.13 (0.87-1.13)
[2017-08-22 07:01] LABS: BUN/Creatinine Ratio 31; Blood Urea Nitrogen 28 mg/dL (9-20); Calcium 8.5 mg/dL (8.4-10.2); Hemolysis Index 19
[2017-08-22] MEDS: SODIUM CHLORIDE FLUSH SYRINGE 10 ML IV SCH ×2 (09:25→21:55)
[2017-08-22] MEDS: HALFPRIN EC PO SCH (09:25)
[2017-08-22] MEDS: K-DUR PO SCH (09:26)
[2017-08-22] MEDS: ZAROXOLYN PO SCH (09:26)
[2017-08-22] MEDS: COREG PO SCH ×2 (09:31→21:54)
[2017-08-22] MEDS: ZESTRIL PO SCH (09:31)
[2017-08-22] MEDS: PERCOCET 5/325 PO PRN ×3 (09:35→18:58)
--- NOTE | 2017-08-22 11:12 | Progress Note ---
Assessment and Plan Acute systolic heart failure 4 chamber dilated cardiomyopathy, EF 15% on echocardiogram Atrial fibrillation, uncertain duration rate control normal TSH initiated on warfarin for oral anticoagulation. Target INR of 2-3. Diabetes Hypertension [facility] 2013: normal coronaries Recommendations: Continue medical therapy for systolic heart failure. Optimal rate control and oral anticoagualtion for atrial fibrillation. Salt/fluid restriction . Daily weight. Further ischemic cardiac evaluation with a persantine thallium stress test tomorrow morning. Subjective Date of service: 08/22/17 Principal diagnosis: A fib with rvr Interval history: Patient is resting in bed comfortably. Objective Vital Signs Temp Pulse Pulse Resp BP BP Pulse Ox 08/22/17 09:31 98 H 112/68 08/22/17 08:52 94 08/22/17 07:48 98.0 F 97 H 20 102/57 94 08/22/17 06:44 94 H 08/22/17 04:30 97.6 F 89 18 125/60 99 08/21/17 23:18 98.0 F 90 111/79 92 08/21/17 20:35 106 H 08/21/17 19:27 98.5 F 108 H 90/42 88 08/21/17 15:20 98.0 F 117 H 20 109/52 96 08/21/17 13:37 103 H 110/76 08/21/17 12:46 123 H 08/21/17 11:28 97.6 F 103 H 20 110/76 94 - Physical Examination General: No Apparent Distress HEENT: Positive: PERRL Cardiac: Positive: irregularly irregular Lungs: Positive: Decreased Breath Sounds Neuro: Positive: Grossly Intact Extremities: Absent: edema - Labs and Meds Coagulation 08/22/17 Range/Units 05:09 PT 15.1 H (12.2-14.9) Sec. INR 1.13 (0.87-1.13) CBC 08/22/17 Range/Units 05:09 WBC 7.9 (4.5-11.0) K/mm3 RBC 5.07 H (3.65-5.03) M/mm3 Hgb 14.4 (11.8-15.2) gm/dl Hct 45.2 (35.5-45.6) % Plt Count 225 (140-440) K/mm3 Lymph # 2.4 (1.2-5.4) K/mm3 [place] # 1.0 H (0.0-0.8) K/mm3 Eos # 0.4 (0.0-0.4) K/mm3 Baso # 0.1 (0.0-0.1) K/mm3 Comprehensive Metabolic Panel 08/22/17 Range/Units 05:09 Sodium 138 (137-145) mmol/L Potassium 4.5 (3.6-5.0) mmol/L Chloride 93.0 L (98-107) mmol/L Carbon Dioxide 35 H D (22-30) mmol/L BUN 28 H (9-20) mg/dL Creatinine 0.9 (0.8-1.5) mg/dL Glucose 83 (75-100) mg/dL Calcium 8.5 (8.4-10.2) mg/dL - Imaging and Cardiology EKG: report reviewed
--- NOTE | 2017-08-22 15:08 | Progress Note ---
Assessment and Plan / Atrial fibrillation with RVR Continue coreg, and warfarin (target INR 2-3) stopped diltiazem, given digoxin iv, last dose was 08/20 /Acute CHF exacerbation Cardiology consulted, cont IV diuresis and s/p IV milrinone 2d echo showed Ef 15%, had normal cardiac function on 2013 plan for stress test tomorrow / Hypertension monitor bp q shift, adjust meds as needed / Obesity Balanced diet recommendation at discharge. / Diabetes mellitus consistent carbohydrate diet, insulin, accu check / DVT prophylaxis SCD to BLE while in bed Brief history: This is a 62yr old male with a history of hypertension and diabetes who is admitted with shortness of breath and rapid atrial fibrillation. A chest xray in the ER reports mild cardiomegaly with a small left side pleural effusion. His ECG showed rapid atrial fibrillation with a left bundle branch block. In 2013 A cardiac cath reports normal coronaries with a preserved ejection fraction. Echo obtain on this admission ahowed a 4-chamber dilated CMP with severe detrioration of LV systolic function since 2013, EF now 15%. Cardiology consulted and started in IV milrinone for HF treatment. Plan for stress test tomorrow. Radiological data: CXR: Mild left pleural effusion and mild cardiomegaly 2d echo: Ef 15% Physical exam: General appearance: Present: no acute distress, well-nourished - EENT Eyes: PERRL, EOM intact ENT: hearing intact, clear oral mucosa Ears: bilateral: normal - Neck Neck: supple, normal ROM - Respiratory Respiratory effort: normal Respiratory: bilateral: CTA - Breasts Breasts: normal - Cardiovascular Heart rate: 80 Rhythm: regular Heart Sounds: Present: S1 & S2. Absent: gallop, rub Extremities: no ischemia, pulses intact, No edema, normal color, Full ROM - Gastrointestinal General gastrointestinal: Present: soft, non-tender, non-distended, normal bowel sounds - Genitourinary Male genitourinary: normal - Integumentary Integumentary: clear, warm, dry - Musculoskeletal Musculoskeletal: 1, strength equal bilaterally - Neurologic Neurologic: moves all extremities - Psychiatric Psychiatric: memory intact, appropriate mood/affect, intact judgment & insight Subjective Date of service: 08/22/17 Principal diagnosis: A fib with rvr Interval history: pt seen and examined states breathing lot better no new issue, denies chest pain Objective - Constitutional Vitals: Vital Signs - 12hr 08/22/17 08/22/17 08/22/17 04:30 06:44 07:48 Temperature 97.6 F 98.0 F Pulse Rate 89 94 H 97 H Pulse Rate [ Left Radial] Pulse Rate [ Right Radial] Respiratory 18 20 Rate Blood Pressure 102/57 Blood Pressure 125/60 [Right] O2 Sat by Pulse 99 94 Oximetry 08/22/17 08/22/17 08/22/17 08:52 09:31 10:00 Temperature Pulse Rate 98 H 101 H Pulse Rate [ 102 H Left Radial] Pulse Rate [ 102 H Right Radial] Respiratory 20 Rate Blood Pressure 112/68 Blood Pressure [Right] O2 Sat by Pulse 94 97 Oximetry 08/22/17 10:42 Temperature 98.4 F Pulse Rate 111 H Pulse Rate [ Left Radial] Pulse Rate [ Right Radial] Respiratory 20 Rate Blood Pressure 103/74 Blood Pressure [Right] O2 Sat by Pulse 88 Oximetry - Labs CBC & Chem 7: 08/22/17 05:09 08/22/17 05:09 Labs: Abnormal lab results 08/21/17 08/21/17 08/21/17 Range/Units 11:01 15:26 22:01 RBC (3.65-5.03) M/mm3 [place] % (Auto) (0.0-7.3) % Eos % (Auto) (0.0-4.3) % [place] # (0.0-0.8) K/mm3 PT (12.2-14.9) Sec. Chloride (98-107) mmol/L Carbon Dioxide (22-30) mmol/L BUN (9-20) mg/dL POC Glucose 147 H 234 H 117 H (70-105) 08/22/17 08/22/17 08/22/17 Range/Units 04:40 05:09 05:09 RBC 5.07 H (3.65-5.03) M/mm3 [place] % (Auto) 13.3 H (0.0-7.3) % Eos % (Auto) 5.4 H (0.0-4.3) % [place] # 1.0 H (0.0-0.8) K/mm3 PT 15.1 H (12.2-14.9) Sec. Chloride (98-107) mmol/L Carbon Dioxide (22-30) mmol/L BUN (9-20) mg/dL POC Glucose 112 H (70-105) 08/22/17 08/22/17 Range/Units 05:09 10:48 RBC (3.65-5.03) M/mm3 [place] % (Auto) (0.0-7.3) % Eos % (Auto) (0.0-4.3) % [place] # (0.0-0.8) K/mm3 PT (12.2-14.9) Sec. Chloride 93.0 L (98-107) mmol/L Carbon Dioxide 35 H D (22-30) mmol/L BUN 28 H (9-20) mg/dL POC Glucose 248 H (70-105)
[2017-08-22] MEDS: COUMADIN PO SCH (18:58)
[2017-08-22] MEDS: PRAVACHOL PO SCH (21:54)
[2017-08-22] MEDS: AMBIEN PO SCH (21:54)
[2017-08-23] MEDS: PERCOCET 5/325 PO PRN ×4 (01:55→22:41)
[2017-08-23] MEDS: LASIX IV SCH (06:07)
[2017-08-23 06:30] LABS: INR 1.11 (0.87-1.13)
[2017-08-23] MEDS ORDERED: LEXISCAN IV ONE ×2 (08:57→08:59)
[2017-08-23] MEDS: K-DUR PO SCH (11:41)
[2017-08-23] MEDS: HALFPRIN EC PO SCH (11:42)
[2017-08-23] MEDS: ZAROXOLYN PO SCH (11:42)
[2017-08-23] MEDS: COREG PO SCH (11:56)
[2017-08-23] MEDS: ZESTRIL PO SCH (11:56)
[2017-08-23] MEDS: SODIUM CHLORIDE FLUSH SYRINGE 10 ML IV SCH ×2 (12:00→22:35)
--- NOTE | 2017-08-23 12:15 | Progress Note ---
Assessment and Plan - Patient Problems (1) Systolic heart failure Current Visit: Yes Status: Acute Plan to address problem: Patient looks and feels better, shortness of breath and edema have resolved. Fluid overload has resolved. Atrial fibrillation persists, with underlying left bundle-branch block. The patient has been initiated on warfarin therapy, but INR remains subtherapeutic. Today, he underwent a Persantine thallium stress test that revealed normal myocardial perfusion in all segments. Findings are consistent with a nonischemic cardiomyopathy. Recommendation is for medical therapy including afterload reducing agents, beta blockers and Coumadin therapy with target INR of 2.0-3.0. The patient wants to go home today, on medical therapy. Would recommend a 10 mg dose of Coumadin today followed by 7.5 mg daily, and follow-up in our office in 3 days for INR check. (2) Atrial fibrillation Current Visit: Yes Status: Acute Plan to address problem: Patient looks and feels better, shortness of breath and edema have resolved. Fluid overload has resolved. Atrial fibrillation persists, with underlying left bundle-branch block. The patient has been initiated on warfarin therapy, but INR remains subtherapeutic. Today, he underwent a Persantine thallium stress test that revealed normal myocardial perfusion in all segments. Findings are consistent with a nonischemic cardiomyopathy. Recommendation is for medical therapy including afterload reducing agents, beta blockers and Coumadin therapy with target INR of 2.0-3.0. The patient wants to go home today, on medical therapy. Would recommend a 10 mg dose of Coumadin today followed by 7.5 mg daily, and follow-up in our office in 3 days for INR check. Subjective Date of service: 08/23/17 Principal diagnosis: A fib with rvr Interval history: Patient looks and feels better, shortness of breath and edema have resolved. Fluid overload has resolved. Atrial fibrillation persists, with underlying left bundle-branch block. The patient has been initiated on warfarin therapy, but INR remains subtherapeutic. Today, he underwent a Persantine thallium stress test that revealed normal myocardial perfusion in all segments. Findings are consistent with a nonischemic cardiomyopathy. Recommendation is for medical therapy including afterload reducing agents, beta blockers and Coumadin therapy with target INR of 2.0-3.0. The patient wants to go home today, on medical therapy. Would recommend a 10 mg dose of Coumadin today followed by 7.5 mg daily, and follow-up in our office in 3 days for INR check. Objective Vital Signs Temp Pulse Pulse Resp Resp BP BP 08/23/17 11:56 102 H 110/80 08/23/17 10:36 110 H 115/83 08/23/17 10:35 111 H 122/83 08/23/17 10:34 111 H 119/75 08/23/17 10:33 112 H 91/63 08/23/17 10:32 116 H 94/69 08/23/17 10:31 103 H 120/80 08/23/17 09:31 97.7 F 101 H 18 109/79 08/23/17 09:24 104 H 120/80 08/23/17 03:58 97.5 F L 97 H 20 100/72 08/23/17 02:55 18 08/23/17 01:55 18 08/23/17 00:04 86 08/23/17 00:03 97.6 F 88 20 101/68 08/22/17 23:15 08/22/17 22:00 90 18 08/22/17 21:54 102 H 106/52 08/22/17 20:08 18 08/22/17 19:53 91 H 08/22/17 19:07 97.4 F L 102 H 106/52 08/22/17 15:47 98.0 F 69 20 106/55 08/22/17 15:39 98.0 F 95 H 20 108/71 Pulse Ox 08/23/17 11:56 08/23/17 10:36 08/23/17 10:35 08/23/17 10:34 08/23/17 10:33 08/23/17 10:32 08/23/17 10:31 08/23/17 09:31 97 08/23/17 09:24 08/23/17 03:58 96 08/23/17 02:55 08/23/17 01:55 08/23/17 00:04 95 08/23/17 00:03 93 08/22/17 23:15 93 08/22/17 22:00 08/22/17 21:54 08/22/17 20:08 08/22/17 19:53 08/22/17 19:07 92 08/22/17 15:47 92 08/22/17 15:39 89 - Physical Examination General: No Apparent Distress HEENT: Positive: PERRL Neck: Positive: neck supple, JVD/HJR Cardiac: Positive: irregularly irregular Lungs: Positive: Decreased Breath Sounds Neuro: Positive: Grossly Intact Abdomen: Positive: Unremarkable Skin: Positive: Clear Extremities: Absent: edema - Labs and Meds Coagulation 08/23/17 Range/Units 05:25 PT 14.9 (12.2-14.9) Sec. INR 1.11 (0.87-1.13) - Imaging and Cardiology EKG: report reviewed
[2017-08-23] MEDS ORDERED: LANOXIN PO ONE (12:17)
[2017-08-23] MEDS ORDERED: LASIX PO SCH (13:00)
[2017-08-23] MEDS ORDERED: COREG PO ONE (13:00)
--- NOTE | 2017-08-23 13:59 | Progress Note ---
Assessment and Plan Assessment and plan: Atrial fibrillation with RVR Continue coreg, and warfarin (target INR 2-3) stopped diltiazem, given digoxin iv, last dose was 08/20 Rate still not controlled Acute CHF exacerbation Cardiology consulted, and following cont IV diuresis and s/p IV milrinone 2d echo showed Ef 15%, had normal cardiac function on 2013 Stress test today Hypertension monitor BP, adjust meds as needed BP not yet controlled Obesity Balanced diet recommendation at discharge. Diabetes mellitus consistent carbohydrate diet, insulin, accu check DVT prophylaxis SCD to BLE while in bed [facility] home tomorrow. History Interval history: Wants to go home, No chest pain no shortness of breath currently Hospitalist Physical - Physical exam Narrative exam: General:Not in acute distress, lying in bed,obese HEENT:Normocephalic, atraumatic Neck:supple,no JVD Lungs: Clear to auscultation, no rales, no wheeze Heart:S1 and S2 irregular, no murmurs, rubs or gallop Abd: soft, non tender,non distended, normal bowel sounds Ext:no edema, no clubbing or cyanosis Neuro:Awake,alert,oriented x 3, moves all extremities, Psych:normal mood - Constitutional Vitals: Temp Pulse Resp BP Pulse Ox 97.7 F 94 H 18 143/115 97 08/23/17 09:31 08/23/17 13:35 08/23/17 09:31 08/23/17 13:35 08/23/17 09:31 General appearance: Present: no acute distress Results - Labs CBC & Chem 7: 08/22/17 05:09 08/22/17 05:09 Labs: Laboratory Last Values WBC 7.9 K/mm3 (4.5-11.0) 08/22/17 05:09 RBC 5.07 M/mm3 (3.65-5.03) H 08/22/17 05:09 Hgb 14.4 gm/dl (11.8-15.2) 08/22/17 05:09 Hct 45.2 % (35.5-45.6) 08/22/17 05:09 MCV 89 fl (84-94) 08/22/17 05:09 MCH 28 pg (28-32) 08/22/17 05:09 MCHC 32 % (32-34) 08/22/17 05:09 RDW 14.0 % (13.2-15.2) 08/22/17 05:09 Plt Count 225 K/mm3 (140-440) 08/22/17 05:09 Lymph % (Auto) 30.3 % (13.4-35.0) 08/22/17 05:09 [place] % (Auto) 13.3 % (0.0-7.3) H 08/22/17 05:09 Eos % (Auto) 5.4 % (0.0-4.3) H 08/22/17 05:09 Baso % (Auto) 0.9 % (0.0-1.8) 08/22/17 05:09 Lymph # 2.4 K/mm3 (1.2-5.4) 08/22/17 05:09 [place] # 1.0 K/mm3 (0.0-0.8) H 08/22/17 05:09 Eos # 0.4 K/mm3 (0.0-0.4) 08/22/17 05:09 Baso # 0.1 K/mm3 (0.0-0.1) 08/22/17 05:09 Seg Neutrophils % 50.1 % (40.0-70.0) 08/22/17 05:09 Seg Neutrophils # 4.0 K/mm3 (1.8-7.7) 08/22/17 05:09 PT 14.9 Sec. (12.2-14.9) 08/23/17 05:25 INR 1.11 (0.87-1.13) 08/23/17 05:25 APTT 31.1 Sec. (24.2-36.6) 08/17/17 11:10 POC ABG pH 7.372 (7.35-7.45) 08/17/17 19:03 POC ABG pCO2 42.3 (35-45) 08/17/17 19:03 POC ABG pO2 86 (80-105) 08/17/17 19:03 POC ABG HCO3 24.6 08/17/17 19:03 POC ABG Total CO2 26 08/17/17 19:03 POC ABG O2 Sat 96 08/17/17 19:03 POC ABG Base Excess -1 08/17/17 19:03 FiO2 2 % 08/17/17 19:03 Sodium 138 mmol/L (137-145) 08/22/17 05:09 Potassium 4.5 mmol/L (3.6-5.0) 08/22/17 05:09 Chloride 93.0 mmol/L (98-107) L 08/22/17 05:09 Carbon Dioxide 35 mmol/L (22-30) H D 08/22/17 05:09 Anion Gap 15 mmol/L 08/22/17 05:09 BUN 28 mg/dL (9-20) H 08/22/17 05:09 Creatinine 0.9 mg/dL (0.8-1.5) 08/22/17 05:09 Estimated GFR > 60 ml/min 08/22/17 05:09 BUN/Creatinine Ratio 31 % 08/22/17 05:09 Glucose 83 mg/dL (75-100) 08/22/17 05:09 POC Glucose 184 (70-105) H 08/23/17 05:57 Calcium 8.5 mg/dL (8.4-10.2) 08/22/17 05:09 Troponin T 0.014 ng/mL (0.00-0.029) 08/17/17 14:43 NT-Pro-B Natriuret Pep 12944 pg/mL (0-900) H 08/17/17 06:51 TSH 1.480 mlU/mL (0.270-4.200) 08/17/17 17:51 Free T4 1.35 ng/dL (0.76-1.46) 08/17/17 17:51
[2017-08-23] MEDS ORDERED: COUMADIN PO ONE (17:00)
[2017-08-23] MEDS ORDERED: COREG PO SCH (22:00)
--- NOTE | 2017-08-23 22:10 | Treadmill Report ---
THALLIUM STRESS TEST LEFT VENTRICLE: Left ventricle is severely dilated. Perfusion study demonstrates homogeneous uptake of the tracer in all segments, no significant defects identified. Gated analysis is not available due to the patient's persistent atrial fibrillation. CONCLUSION: Evidence of a severely dilated cardiomyopathy, with normal myocardial perfusion suggesting a nonischemic cardiomyopathy. Clinical correlation is recommended. JOB# [id number] CA/NTS
[2017-08-23] MEDS: AMBIEN PO SCH (22:34)
[2017-08-23] MEDS: PRAVACHOL PO SCH (22:34)
[2017-08-24] MEDS: PERCOCET 5/325 PO PRN (05:57)
[2017-08-24] MEDS ORDERED: LASIX PO SCH (06:00)
[2017-08-24 06:22] LABS: INR 1.17 (0.87-1.13)
[2017-08-24 08:44] VITALS: BP 72/50
--- NOTE | 2017-08-24 09:28 | Progress Note ---
Assessment and Plan Acute systolic heart failure 4 chamber dilated cardiomyopathy, EF 15% on echocardiogram normal myocardial perfusion scan consistent with nonischemic cardiomyopathy Atrial fibrillation with underlying LBBB, uncertain duration rate control; on digoxin and carvedilol normal TSH initiated on warfarin for oral anticoagulation. Target INR of 2-3. Diabetes Hypertension [facility] 2014: normal coronaries Recommendations: Salt/fluid restriction . Daily weight. Continue medical therapy for nonischemic cardiomyopathy. Continue rate controlling agents and oral anticoagualtion for atrial fibrillation. Recommend follow-up in 2-3 days for INR check as outpatient. Subjective Date of service: 08/24/17 Principal diagnosis: A fib with rvr Interval history: Patient has no complaints. Wants to go home. Objective Vital Signs Temp Pulse Pulse Pulse Resp Resp BP 08/24/17 08:17 08/24/17 05:57 18 08/24/17 05:50 98.9 F 84 18 08/24/17 04:26 61 72/50 08/24/17 00:30 98.3 F 84 20 08/23/17 23:41 18 08/23/17 22:41 18 08/23/17 22:35 86 93/55 08/23/17 22:19 85 08/23/17 22:00 85 18 18 08/23/17 20:06 97.7 F 86 18 08/23/17 19:41 95 H 93/55 08/23/17 16:21 97.6 F 83 18 105/72 08/23/17 13:35 94 H 143/115 08/23/17 13:34 94 H 110/72 08/23/17 11:56 102 H 110/80 08/23/17 10:36 110 H 115/83 08/23/17 10:35 111 H 122/83 08/23/17 10:34 111 H 119/75 08/23/17 10:33 112 H 91/63 08/23/17 10:32 116 H 94/69 08/23/17 10:31 103 H 120/80 08/23/17 10:00 94 H 94 H 94 H 18 08/23/17 09:31 97.7 F 101 H 18 BP Pulse Ox 08/24/17 08:17 96 08/24/17 05:57 08/24/17 05:50 92/58 94 08/24/17 04:26 84 08/24/17 00:30 98/61 93 08/23/17 23:41 08/23/17 22:41 08/23/17 22:35 08/23/17 22:19 08/23/17 22:00 08/23/17 20:06 93/55 94 08/23/17 19:41 91 08/23/17 16:21 96 08/23/17 13:35 08/23/17 13:34 08/23/17 11:56 08/23/17 10:36 08/23/17 10:35 08/23/17 10:34 08/23/17 10:33 08/23/17 10:32 08/23/17 10:31 08/23/17 10:00 08/23/17 09:31 109/79 97 - Physical Examination General: No Apparent Distress HEENT: Positive: PERRL Neck: Positive: neck supple Cardiac: Positive: irregularly irregular Neuro: Positive: Grossly Intact Extremities: Absent: edema - Labs and Meds Coagulation 08/24/17 Range/Units 05:07 PT 15.5 H (12.2-14.9) Sec. INR 1.17 H (0.87-1.13)
--- NOTE | 2017-08-24 09:31 | Discharge Summary ---
Providers - Providers Date of Admission: 08/17/17 12:51 Date of discharge: 08/24/17 Attending physician: KATIE SIMMONS 08/17/17 13:11 Consult to Cardiology [CONS] Routine Consulting Provider: SIRENA DIOP Reason For Exam: chf Primary care physician: JAVAD VELEZ MD Hospitalization Condition: Fair Disposition: DC-01 TO HOME OR SELFCARE Core Measure Documentation - Palliative Care Palliative Care/ Comfort Measures: Not Applicable - Core Measures Any of the following diagnoses?: heart failure - Heart Failure Discharge Requirements GRETCHEN/ARB for LVSD if EF <40%: Yes Beta dariana at discharge: Yes Exam - Constitutional Vitals: Temp Pulse Resp BP Pulse Ox 98.9 F 84 18 92/58 96 08/24/17 05:50 08/24/17 05:50 08/24/17 05:57 08/24/17 05:50 08/24/17 08:17 Plan Activity: advance as tolerated Diet: low fat, low cholesterol, low salt Additional Instructions: 1.Follow up with PCP at [facility] in 1 week. 2.Follow up with [employer] at [facility]. 3.Check INR at [facility] on Tuesday08/26/17. 4.Physician at [facility] to titrate Coumadin to target INR 2-3 Follow up with: PRIMARY CARE, [Primary Care Provider] - 3-5 Days Forms: Warfarin Discharge Instruction Prescriptions: Carvedilol [Coreg] 12.5 mg PO BID #60 tablet Digoxin [Lanoxin] 0.25 mg PO DAILY@1700 #30 tablet Warfarin [Coumadin] 7.5 mg PO DAILY@1700 #30 tablet
[2017-08-24] MEDS ORDERED: COUMADIN PO SCH (17:00)
[2017-08-24] MEDS ORDERED: LANOXIN PO SCH (17:00)
== END 2017-08-24 11:48 | disposition home or self-care (01) | DRG 308 ==
LOC: ED 06:30 → 4A 12:51
PROVIDERS: ADMIT Internal Medicine; ATTEND Internal Medicine
DX: I48.91 Unspecified atrial fibrillation (principal); I50.23 Acute on chronic systolic (congestive) heart failure; I42.0 Dilated cardiomyopathy; E11.9 Type 2 diabetes mellitus without complications; I44.7 Left bundle-branch block, unspecified; I11.0 Hypertensive heart disease with heart failure; Z79.4 Long term (current) use of insulin; Z79.82 Long term (current) use of aspirin; Z79.899 Other long term (current) drug therapy
CPT/HCPCS: 36415; 36600; 71046; 78452; 80048; 82803; 82947; 82962; 83880; 84439; 84443; 84484; 85025; 85610; 85730; 93005; 93010; 93017; 93306; 94760; 96374; 96375; 99291; A9270-GY; A9502; J1160; J1815; J1940; J2260; J2785

== ENCOUNTER 2017-09-07 16:57 | Inpatient (IN) | payer OTHER ==
[2017-09-07 19:23] LABS: INR 1.21 (0.87-1.13)
[2017-09-07 19:34] LABS: Basophils # (Auto) 0.1 K/mm3 (0.0-0.1); Basophils % (Auto) 0.6 % (0.0-1.8); Eosinophils # (Auto) 0.3 K/mm3 (0.0-0.4); Eosinophils % (Auto) 3.2 % (0.0-4.3); Hematocrit 42.6 % (35.5-45.6); Lymphocytes % (Auto) 11.1 % (13.4-35.0); Mean Corpuscular HGB Conc 33 % (32-34); Mean Corpuscular Hemoglobin 28 pg (28-32); Mean Corpuscular Volume 86 fl (84-94); Monocytes # (Auto) 0.8 K/mm3 (0.0-0.8); Monocytes % (Auto) 9.6 % (0.0-7.3); Platelet Count 234 K/mm3 (140-440); Red Blood Count 4.95 M/mm3 (3.65-5.03); Red Cell Distribution Width 14.6 % (13.2-15.2)
[2017-09-07 19:46] LABS: Alanine Aminotransferase 25 units/L (7-56); Albumin 3.3 g/dL (3.9-5); BUN/Creatinine Ratio 22; Blood Urea Nitrogen 22 mg/dL (9-20); Calcium 8.6 mg/dL (8.4-10.2); Hemolysis Index 4; Lipase 17 units/L (13-60)
[2017-09-07] MEDS ORDERED: LASIX IV ONE ×2 (20:29→20:30)
--- NOTE | 2017-09-07 21:37 | XRay Report ---
FINAL REPORT EXAM: XR CHEST 1V AP HISTORY: chest pain TECHNIQUE: Upright portable chest x-ray Comparison: 08/17/17 FINDINGS: There enlargement of the cardiac silhouette. There is ill-defined right suprahilar opacity measuring approximately 4.6 x 6 centimeters, not seen previously. There is improved aeration at the left lung base. A possible azygos lobe may be present. IMPRESSION: Ill-defined right suprahilar opacity and possible azygos lobe. Improved aeration left lung base. Enlarged cardiac silhouette compatible with cardiomegaly versus pericardial effusion. No definite pleural effusion. Recommend CT chest with IV contrast for further characterization.
[2017-09-07 22:18] LABS: Benzodiazepines Screen,Urine PRESUMPTIVE NEGATIVE; Methadone Screen,Urine PRESUMPTIVE NEGATIVE; Opiate Screen,Urine PRESUMPTIVE NEGATIVE
[2017-09-07 22:31] LABS: Amphetamine Screen,Urine PRESUMPTIVE POSITIVE; Cannabinoid Screen,Urine PRESUMPTIVE POSITIVE; Cocaine Screen,Urine PRESUMPTIVE NEGATIVE
[2017-09-07] MEDS ORDERED: XYLOCAINE 1% MPF 5 mL INFILTRATI ONE (23:40)
--- NOTE | 2017-09-07 23:44 | History and Physical Report ---
History of Present Illness Date of examination: 09/07/17 History of present illness: 62 year old man with history of hypertension, diabetes, CHF, hepatitis, A. fib was found to tell by his daughter confused and lying in is feces. Patient is currently agitated, refused to cooperate, review of systems unobtainable PAST MEDICAL HISTORY:hypertension, diabetes, CHF, hepatitis, A. fib PAST SURGICAL HISTORY:back SOCIAL HISTORY: Denies alcohol, tobacco, drugs, however U tox was positive for marijuana, amphetamine FAMILY HISTORY: hypertension Medications and Allergies Allergies Allergy/AdvReac Type Severity Reaction Status Date / Time No Known Allergies Allergy Verified 08/17/17 06:49 Home Medications Medication Instructions Recorded Confirmed Last Taken Type Insulin NPH, Human [NovoLIN N] 45 unit SUB-Q QAM 10/08/13 09/07/17 10/08/13 History Insulin NPH, Human [NovoLIN N] 45 unit SUB-Q QPM 10/08/13 09/07/17 10/07/13 History Aspirin EC [Aspirin Enteric Coated 81 mg PO QDAY #30 tablet. 10/09/13 Unknown Rx TAB] Lovastatin [Mevacor] 40 mg PO QDAY #30 tablet 10/10/13 09/07/17 Unknown Rx Bumetanide [Bumex 1 mg tab] 1 mg PO BID #60 tab 08/24/17 09/07/17 Unknown Rx Carvedilol [Coreg] 12.5 mg PO BID #60 tablet 08/24/17 09/07/17 Unknown Rx Digoxin [Lanoxin] 0.25 mg PO DAILY@1700 #30 tablet 08/24/17 09/07/17 Unknown Rx Lisinopril [Prinivil] 10 mg PO DAILY #30 tablet 08/24/17 09/07/17 Unknown Rx Warfarin [Coumadin] 7.5 mg PO DAILY@1700 #30 tablet 08/24/17 09/07/17 Unknown Rx Active Meds: Active Medications Azithromycin 500 mg/ Sodium (Chloride) 250 mls @ 250 mls/hr IV ONCE ONE Stop: 09/08/17 00:39 Ceftriaxone Sodium 1,000 mg/ (Sodium Chloride) 50 mls @ 100 mls/hr IV ONCE ONE ; Protocol Stop: 09/08/17 00:14 Exam - Physical Exam Narrative exam: Gen. appearance: Patient lying in bed, no apparent distress HEENT: Normocephalic, atraumatic, pupils equally round and reactive to light, extraocular movement intact, and no sclericterus,. No JVD or thyromegaly or nodule,neck supple, no carotid bruit ,mucous membranes moist, no exudate or erythema Heart: S1, S2, regular rate and rhythm Lungs: decrease breath sounds bilaterally, breathing comfortable Abdomen: Positive bowel sounds, nontender, nondistended, no organomegaly Extremity: No edema, cyanosis, clubbing Skin: No rash, nodules, warm, dry Neuro: Oriented 3, cranial nerves II-12 intact, speech is fluent, motor and sensory intact - Constitutional Vitals: Temp Pulse Resp BP Pulse Ox 97.8 F 106 H 19 102/81 97 09/07/17 19:52 09/07/17 23:00 09/07/17 23:00 09/07/17 23:00 09/07/17 23:00 Results - Labs CBC & Chem 7: 09/07/17 18:34 09/07/17 18:34 Labs: Abnormal lab results 09/07/17 09/07/17 09/07/17 Range/Units 18:34 18:34 18:34 Lymph % (Auto) 11.1 L (13.4-35.0) % [place] % (Auto) 9.6 H (0.0-7.3) % Lymph # 1.0 L (1.2-5.4) K/mm3 Seg Neutrophils % 75.5 H (40.0-70.0) % PT 16.0 H (12.2-14.9) Sec. INR 1.21 H (0.87-1.13) Sodium 133 L (137-145) mmol/L Chloride 94.4 L (98-107) mmol/L BUN 22 H (9-20) mg/dL Glucose 134 H (75-100) mg/dL NT-Pro-B Natriuret Pep (0-900) pg/mL Albumin 3.3 L (3.9-5) g/dL Digoxin (0.9-2.0) ng/mL 09/07/17 09/07/17 Range/Units 18:34 18:34 Lymph % (Auto) (13.4-35.0) % [place] % (Auto) (0.0-7.3) % Lymph # (1.2-5.4) K/mm3 Seg Neutrophils % (40.0-70.0) % PT (12.2-14.9) Sec. INR (0.87-1.13) Sodium (137-145) mmol/L Chloride (98-107) mmol/L BUN (9-20) mg/dL Glucose (75-100) mg/dL NT-Pro-B Natriuret Pep 63521 H (0-900) pg/mL Albumin (3.9-5) g/dL Digoxin 0.3 L (0.9-2.0) ng/mL - Imaging and Cardiology EKG: image reviewed Chest x-ray: image reviewed CT scan - chest: report reviewed Assessment and Plan Assessment Community-acquired pneumonia pleural effusion/CHF Substance abuse A. fib Hypertension Diabetes pLAN Start IV antibiotics, follow cultures Start IV Lasix, consult cardiology Check cardiac enzymes, continue per palpation medications DVT prophylaxis
[2017-09-07] MEDS ORDERED: ROCEPHIN 1,000 MG in NACL 0.9% 50 ML IV ONE (23:45)
--- NOTE | 2017-09-07 23:55 | Emergency Department Report ---
ED Altered Mental Status HPI - General Chief Complaint: Weakness Stated Complaint: HEADACHE/ WEAKNESS Time Seen by Provider: 09/07/17 17:54 Source: patient, EMS Mode of arrival: Stretcher Limitations: No Limitations - History of Present Illness Initial Comments: History obtained from EMS and the patient. Reportedly, his daughter found the patient sitting in his feces in the hotel. He was acting confused. Patient was recently discharged from the hospital. At the hospital, patient knows where he is, but continues to act odd. He is unable to have a coherent conversation. Denies physical complaints at this time. - Related Data Home Medications Medication Instructions Recorded Confirmed Last Taken Insulin NPH, Human [NovoLIN N] 45 unit SUB-Q QAM 10/08/13 09/07/17 10/08/13 Insulin NPH, Human [NovoLIN N] 45 unit SUB-Q QPM 10/08/13 09/07/17 10/07/13 Previous Rx's Medication Instructions Recorded Last Taken Type Aspirin EC [Aspirin Enteric Coated 81 mg PO QDAY #30 tablet. 10/09/13 Unknown Rx TAB] Lovastatin [Mevacor] 40 mg PO QDAY #30 tablet 10/10/13 Unknown Rx Bumetanide [Bumex 1 mg tab] 1 mg PO BID #60 tab 08/24/17 Unknown Rx Carvedilol [Coreg] 12.5 mg PO BID #60 tablet 08/24/17 Unknown Rx Digoxin [Lanoxin] 0.25 mg PO DAILY@1700 #30 tablet 08/24/17 Unknown Rx Lisinopril [Prinivil] 10 mg PO DAILY #30 tablet 08/24/17 Unknown Rx Warfarin [Coumadin] 7.5 mg PO DAILY@1700 #30 tablet 08/24/17 Unknown Rx Allergies Allergy/AdvReac Type Severity Reaction Status Date / Time No Known Allergies Allergy Verified 08/17/17 06:49 ED Review of Systems ROS: Stated complaint: HEADACHE/ WEAKNESS Other details as noted in HPI ED Past Medical Hx - Past Medical History Previous Medical History?: Yes Hx Hypertension: Yes Hx Congestive Heart Failure: Yes Hx Diabetes: Yes Additional medical history: Hep C - Surgical History Past Surgical History?: Yes Additional Surgical History: Back Surgery - Social History Smoking Status: Never Smoker Substance Use Type: Alcohol - Medications Home Medications: Home Medications Medication Instructions Recorded Confirmed Last Taken Type Insulin NPH, Human [NovoLIN N] 45 unit SUB-Q QAM 10/08/13 09/07/17 10/08/13 History Insulin NPH, Human [NovoLIN N] 45 unit SUB-Q QPM 10/08/13 09/07/17 10/07/13 History Aspirin EC [Aspirin Enteric Coated 81 mg PO QDAY #30 tablet. 10/09/13 Unknown Rx TAB] Lovastatin [Mevacor] 40 mg PO QDAY #30 tablet 10/10/13 09/07/17 Unknown Rx Bumetanide [Bumex 1 mg tab] 1 mg PO BID #60 tab 08/24/17 09/07/17 Unknown Rx Carvedilol [Coreg] 12.5 mg PO BID #60 tablet 08/24/17 09/07/17 Unknown Rx Digoxin [Lanoxin] 0.25 mg PO DAILY@1700 #30 tablet 08/24/17 09/07/17 Unknown Rx Lisinopril [Prinivil] 10 mg PO DAILY #30 tablet 08/24/17 09/07/17 Unknown Rx Warfarin [Coumadin] 7.5 mg PO DAILY@1700 #30 tablet 08/24/17 09/07/17 Unknown Rx ED Physical Exam - General Limitations: No Limitations ED Course Vital Signs 09/07/17 09/07/17 09/07/17 17:56 18:00 18:07 Temperature 97.5 F L Pulse Rate 96 H 97 H Respiratory 23 19 Rate Blood Pressure 97/70 103/77 Blood Pressure [Right] O2 Sat by Pulse 95 93 96 Oximetry 09/07/17 09/07/17 09/07/17 18:15 18:30 18:45 Temperature Pulse Rate 105 H 89 117 H Respiratory 22 12 12 Rate Blood Pressure 104/73 104/73 95/76 Blood Pressure [Right] O2 Sat by Pulse 71 L 86 90 Oximetry 09/07/17 09/07/17 09/07/17 19:00 19:52 21:00 Temperature 97.8 F Pulse Rate 112 H 104 H 105 H Respiratory 17 22 17 Rate Blood Pressure 95/68 101/77 Blood Pressure 93/69 [Right] O2 Sat by Pulse 90 95 96 Oximetry 09/07/17 23:00 Temperature Pulse Rate 106 H Respiratory 19 Rate Blood Pressure 102/81 Blood Pressure [Right] O2 Sat by Pulse 97 Oximetry - Lab Data Result diagrams: 09/07/17 18:34 09/07/17 18:34 Lab Results 09/07/17 09/07/17 09/07/17 Range/Units 18:34 18:34 18:34 WBC 8.7 (4.5-11.0) K/mm3 RBC 4.95 (3.65-5.03) M/mm3 Hgb 14.0 (11.8-15.2) gm/dl Hct 42.6 (35.5-45.6) % MCV 86 (84-94) fl MCH 28 (28-32) pg MCHC 33 (32-34) % RDW 14.6 (13.2-15.2) % Plt Count 234 (140-440) K/mm3 Lymph % (Auto) 11.1 L (13.4-35.0) % [place] % (Auto) 9.6 H (0.0-7.3) % Eos % (Auto) 3.2 (0.0-4.3) % Baso % (Auto) 0.6 (0.0-1.8) % Lymph # 1.0 L (1.2-5.4) K/mm3 [place] # 0.8 (0.0-0.8) K/mm3 Eos # 0.3 (0.0-0.4) K/mm3 Baso # 0.1 (0.0-0.1) K/mm3 Seg Neutrophils % 75.5 H (40.0-70.0) % Seg Neutrophils # 6.5 (1.8-7.7) K/mm3 PT 16.0 H (12.2-14.9) Sec. INR 1.21 H (0.87-1.13) Sodium 133 L (137-145) mmol/L Potassium 4.0 (3.6-5.0) mmol/L Chloride 94.4 L (98-107) mmol/L Carbon Dioxide 27 (22-30) mmol/L Anion Gap 16 mmol/L BUN 22 H (9-20) mg/dL Creatinine 1.0 (0.8-1.5) mg/dL Estimated GFR > 60 ml/min BUN/Creatinine Ratio 22 % Glucose 134 H (75-100) mg/dL Lactic Acid (0.7-2.0) mmol/L Calcium 8.6 (8.4-10.2) mg/dL Total Bilirubin 0.90 (0.1-1.2) mg/dL AST 25 (5-40) units/L ALT 25 (7-56) units/L Alkaline Phosphatase 78 (35-129) units/L Ammonia (25-60) umol/L NT-Pro-B Natriuret Pep (0-900) pg/mL Total Protein 6.6 (6.3-8.2) g/dL Albumin 3.3 L (3.9-5) g/dL Albumin/Globulin Ratio 1.0 % Lipase 17 (13-60) units/L Digoxin (0.9-2.0) ng/mL Urine Opiates Screen Urine Methadone Screen Ur Barbiturates Screen Ur Phencyclidine Scrn Ur Amphetamines Screen U Benzodiazepines Scrn Urine Cocaine Screen U Marijuana (THC) Screen Drugs of Abuse Note Plasma/Serum Alcohol (0-0.07) % 09/07/17 09/07/17 09/07/17 Range/Units 18:34 18:34 18:34 WBC (4.5-11.0) K/mm3 RBC (3.65-5.03) M/mm3 Hgb (11.8-15.2) gm/dl Hct (35.5-45.6) % MCV (84-94) fl MCH (28-32) pg MCHC (32-34) % RDW (13.2-15.2) % Plt Count (140-440) K/mm3 Lymph % (Auto) (13.4-35.0) % [place] % (Auto) (0.0-7.3) % Eos % (Auto) (0.0-4.3) % Baso % (Auto) (0.0-1.8) % Lymph # (1.2-5.4) K/mm3 [place] # (0.0-0.8) K/mm3 Eos # (0.0-0.4) K/mm3 Baso # (0.0-0.1) K/mm3 Seg Neutrophils % (40.0-70.0) % Seg Neutrophils # (1.8-7.7) K/mm3 PT (12.2-14.9) Sec. INR (0.87-1.13) Sodium (137-145) mmol/L Potassium (3.6-5.0) mmol/L Chloride (98-107) mmol/L Carbon Dioxide (22-30) mmol/L Anion Gap mmol/L BUN (9-20) mg/dL Creatinine (0.8-1.5) mg/dL Estimated GFR ml/min BUN/Creatinine Ratio % Glucose (75-100) mg/dL Lactic Acid 1.20 (0.7-2.0) mmol/L Calcium (8.4-10.2) mg/dL Total Bilirubin (0.1-1.2) mg/dL AST (5-40) units/L ALT (7-56) units/L Alkaline Phosphatase (35-129) units/L Ammonia 28.0 (25-60) umol/L NT-Pro-B Natriuret Pep (0-900) pg/mL Total Protein (6.3-8.2) g/dL Albumin (3.9-5) g/dL Albumin/Globulin Ratio % Lipase (13-60) units/L Digoxin 0.3 L (0.9-2.0) ng/mL Urine Opiates Screen Urine Methadone Screen Ur Barbiturates Screen Ur Phencyclidine Scrn Ur Amphetamines Screen U Benzodiazepines Scrn Urine Cocaine Screen U Marijuana (THC) Screen Drugs of Abuse Note Plasma/Serum Alcohol (0-0.07) % 09/07/17 09/07/17 09/07/17 Range/Units 18:34 18:34 22:01 WBC (4.5-11.0) K/mm3 RBC (3.65-5.03) M/mm3 Hgb (11.8-15.2) gm/dl Hct (35.5-45.6) % MCV (84-94) fl MCH (28-32) pg MCHC (32-34) % RDW (13.2-15.2) % Plt Count (140-440) K/mm3 Lymph % (Auto) (13.4-35.0) % [place] % (Auto) (0.0-7.3) % Eos % (Auto) (0.0-4.3) % Baso % (Auto) (0.0-1.8) % Lymph # (1.2-5.4) K/mm3 [place] # (0.0-0.8) K/mm3 Eos # (0.0-0.4) K/mm3 Baso # (0.0-0.1) K/mm3 Seg Neutrophils % (40.0-70.0) % Seg Neutrophils # (1.8-7.7) K/mm3 PT (12.2-14.9) Sec. INR (0.87-1.13) Sodium (137-145) mmol/L Potassium (3.6-5.0) mmol/L Chloride (98-107) mmol/L Carbon Dioxide (22-30) mmol/L Anion Gap mmol/L BUN (9-20) mg/dL Creatinine (0.8-1.5) mg/dL Estimated GFR ml/min BUN/Creatinine Ratio % Glucose (75-100) mg/dL Lactic Acid (0.7-2.0) mmol/L Calcium (8.4-10.2) mg/dL Total Bilirubin (0.1-1.2) mg/dL AST (5-40) units/L ALT (7-56) units/L Alkaline Phosphatase (35-129) units/L Ammonia (25-60) umol/L NT-Pro-B Natriuret Pep 52362 H (0-900) pg/mL Total Protein (6.3-8.2) g/dL Albumin (3.9-5) g/dL Albumin/Globulin Ratio % Lipase (13-60) units/L Digoxin (0.9-2.0) ng/mL Urine Opiates Screen Presumptive negative Urine Methadone Screen Presumptive negative Ur Barbiturates Screen Presumptive negative Ur Phencyclidine Scrn Presumptive negative Ur Amphetamines Screen Presumptive positive U Benzodiazepines Scrn Presumptive negative Urine Cocaine Screen Presumptive negative U Marijuana (THC) Screen Presumptive positive Drugs of Abuse Note Disclamer Plasma/Serum Alcohol < 0.01 (0-0.07) % - EKG Data -: EKG Interpreted by Me (Teodoro fib w/o RVR) - Radiology Data Radiology results: report reviewed, image reviewed - Medical Decision Making 62 yo male with pmhx schizophrenia, a.fib, chf that p/w AMS. D/w daughter, who said that he was normal a couple of days ago. They haven't been able to get in touch with him for the past couple of days. Here, he is altered by stable with a BP in the low 100s. CXR and CT chest shows concerns for pneumonia and pleural effusion. He will be covered with azithro/rocephin. Respiratory status is stable. UDS is positive for THC/amphetamines. Pt is chronically in a. fib w/o RVR. Dig and INR levels are subtherapeutic. Family says that he has been non- compliant with his home meds. Pt will be admitted for further management. Problem list: - CAP - AMS - Polysubstance abuse - subtherapeutic INR/digoxin - CHF exacerbation - NEXUS Criteria Focal neurological deficit present: No Midline spinal tenderness present: No Altered level of consciousness: Yes Intoxication present: Yes NEXUS results: C-Spine cannot be cleared clinically by these results. Imaging is required. Critical care attestation.: If time is entered above; I have spent that time in minutes in the direct care of this critically ill patient, excluding procedure time. ED Disposition Clinical Impression: Polysubstance abuse, Pneumonia, Altered mental status, Atrial fibrillation Disposition: 09 OP ADMIT IP TO THIS HOSP Is pt being admited?: Yes Does the pt Need Aspirin: No Condition: Stable
[2017-09-08] MEDS ORDERED: ZITHROMAX 500 MG in NACL 0.9% 250ML 250 ML IV ONE
[2017-09-08] MEDS ORDERED: cefTRIAXone 1 GM in NACL 0.9% 20 ML IV ONE (01:00)
--- NOTE | 2017-09-08 02:14 | Cat Scan Report ---
FINAL REPORT PROCEDURE: CT CHEST W CON TECHNIQUE: Computerized axial tomography of the chest was performed during the IV injection of iodinated nonionic contrast. HISTORY: c/f lung mass COMPARISON: No prior studies are available for comparison. TECHNICAL QUALITY: Satisfactory. FINDINGS: Heart and pericardium: The heart size is slightly enlarged. No pericardial effusion. 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 Pulmonary vasculature: Normal. Lymph nodes: No enlarged thoracic lymph nodes. Lungs: Increased markings in the right upper lung has some air bronchograms most consistent with an acute inflammatory process. Pneumonia is suspected. Recheck study after clinical treatment is recommended. There is a moderate right effusion. Slight left pleural thickening is noted. The central airway is patent.. Pleural space: Moderate right effusion. Musculoskeletal structures: Mild degenerative changes of the thoracic spine.. Upper abdominal structures: No significant abnormality. IMPRESSION: Scattered increased markings right upper lung posteriorly most consistent with acute inflammatory process as discussed. Followup study after clinical therapy is recommended. Underlying pathology is not entirely excluded. There is a moderate right effusion. Slight pleural thickening left lower lung. 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 Mild cardiomegaly.
[2017-09-08] MEDS ORDERED: SODIUM CHLORIDE FLUSH SYRINGE 10 ML IV PRN (02:38)
[2017-09-08 04:47] LABS: Creatine Kinase MB 2.9 ng/mL (0.0-4.0)
[2017-09-08] MEDS: LASIX IV SCH ×2 (06:55→18:04)
[2017-09-08 09:47] LABS: INR 1.2 (0.87-1.13)
[2017-09-08 09:48] LABS: Partial Thromboplastin Time 30.3 Sec. (24.2-36.6)
[2017-09-08 09:58] LABS: Creatine Kinase MB 2.8 ng/mL (0.0-4.0)
[2017-09-08] MEDS ORDERED: ROCEPHIN/NS 1 GM/50 ML 1 GM/50 ML BAG IV SCH (10:00)
[2017-09-08] MEDS: LOVENOX SUB-Q SCH (10:50)
[2017-09-08] MEDS: HALFPRIN EC PO SCH (10:50)
[2017-09-08] MEDS: SODIUM CHLORIDE FLUSH SYRINGE 10 ML IV SCH ×2 (10:52→22:16)
[2017-09-08] MEDS: ZITHROMAX 500 MG in NACL 0.9% 250ML 250 ML IV SCH (10:53)
[2017-09-08] MEDS: COREG PO SCH ×2 (10:54→22:14)
[2017-09-08] MEDS: ZESTRIL PO SCH (10:54)
[2017-09-08] MEDS: cefTRIAXone 1 GM in NACL 0.9% 20 ML IV SCH (11:10)
--- NOTE | 2017-09-08 11:18 | Progress Note ---
Assessment and Plan History obtained from EMS and the patient. Reportedly, his daughter found the patient sitting in his feces [place] the [place]. He was acting confused. Patient was recently discharged from the hospital. At the hospital, patient knows where he is, but continues to act odd. He is unable to have a coherent conversation. Denies physical complaints at this time. Assessment Community-acquired pneumonia Dilated Nonischemic cardiomyopathy with EF 15% as of 06/2017 A. fib Hypertension Diabetes Plan Continue IV antibiotics, Follow cultures Continue with IV Lasix, Strick Is and Os daily weight, BB, ACEI, Statin, ECHO, consult cardiology Lipid panel and TSH Check cardiac enzymes, continue relevant out pt meds DVT prophylaxis with Lovenox Subjective Date of service: 09/08/17 Principal diagnosis: Metabolic encephalopathy, Acute bacterail pneumonia Interval history: Pt seen and examined. Confused Objective - Exam Narrative Exam: Constitutional: Well-nourished well-developed. In no distress Head: Normocephalic atraumatic Eyes: Pupils are equal round and reactive to light Nose: No enlarged turbinates, no septal deviation. Mouth: Moist mucous membranes. Neck: Supple no thyromegaly. No bruit. No JVD Heart: Regular rate and rhythm, S1-S2 abnormal. No rubs murmurs or gallop Lungs: Decreased breath sounds auscultation bilaterally no rales or rhonchi Abdomen: Soft, nontender. Bowel sound are present. Extremities: No edema no cyanosis and no clubbing. Neuro: Alert oriented Oriented x3. No focal sensory or motor deficit. Skin: No rashes no hyperemic spots Psychiatry: Euthymic. Calm. - Constitutional Vitals: Vital Signs - 12hr 09/08/17 09/08/17 09/08/17 01:00 02:00 04:14 Pulse Rate 107 H 109 H 109 H Respiratory 21 22 14 Rate Blood Pressure 109/83 117/87 Blood Pressure 96/65 [Right] O2 Sat by Pulse 97 97 97 Oximetry 09/08/17 09/08/17 05:00 06:27 Pulse Rate 118 H 112 H Respiratory 22 23 Rate Blood Pressure 100/71 Blood Pressure 116/83 [Right] O2 Sat by Pulse 90 94 Oximetry General appearance: Present: no acute distress, well-nourished, other (confused) - EENT Eyes: PERRL, EOM intact - Neck Neck: supple, normal ROM - Respiratory Respiratory effort: normal Respiratory: bilateral: CTA - Cardiovascular Rhythm: regular Heart Sounds: Present: S1 & S2. Absent: gallop, rub Extremities: pulses intact, No edema, normal color, Full ROM - Gastrointestinal General gastrointestinal: Present: soft, non-tender, non-distended, normal bowel sounds - Integumentary Integumentary: clear, warm, dry - Musculoskeletal Musculoskeletal: generalized weakness - Neurologic Neurologic: moves all extremities - Psychiatric Psychiatric: agitated - Labs CBC & Chem 7: 09/07/17 18:34 09/07/17 18:34 Labs: Abnormal lab results 09/07/17 09/07/17 09/07/17 Range/Units 18:34 18:34 18:34 Lymph % (Auto) 11.1 L (13.4-35.0) % [place] % (Auto) 9.6 H (0.0-7.3) % Lymph # 1.0 L (1.2-5.4) K/mm3 Seg Neutrophils % 75.5 H (40.0-70.0) % PT 16.0 H (12.2-14.9) Sec. INR 1.21 H (0.87-1.13) Sodium 133 L (137-145) mmol/L Chloride 94.4 L (98-107) mmol/L BUN 22 H (9-20) mg/dL Glucose 134 H (75-100) mg/dL Total Creatine Kinase (55-170) units/L CK-MB (CK-2) Rel Index (0-4) NT-Pro-B Natriuret Pep (0-900) pg/mL Albumin 3.3 L (3.9-5) g/dL Digoxin (0.9-2.0) ng/mL 09/07/17 09/07/17 09/08/17 Range/Units 18:34 18:34 04:13 Lymph % (Auto) (13.4-35.0) % [place] % (Auto) (0.0-7.3) % Lymph # (1.2-5.4) K/mm3 Seg Neutrophils % (40.0-70.0) % PT (12.2-14.9) Sec. INR (0.87-1.13) Sodium (137-145) mmol/L Chloride (98-107) mmol/L BUN (9-20) mg/dL Glucose (75-100) mg/dL Total Creatine Kinase 45 L (55-170) units/L CK-MB (CK-2) Rel Index 6.4 H (0-4) NT-Pro-B Natriuret Pep 21262 H (0-900) pg/mL Albumin (3.9-5) g/dL Digoxin 0.3 L (0.9-2.0) ng/mL 09/08/17 Range/Units 09:10 Lymph % (Auto) (13.4-35.0) % [place] % (Auto) (0.0-7.3) % Lymph # (1.2-5.4) K/mm3 Seg Neutrophils % (40.0-70.0) % PT 15.9 H (12.2-14.9) Sec. INR 1.20 H (0.87-1.13) Sodium (137-145) mmol/L Chloride (98-107) mmol/L BUN (9-20) mg/dL Glucose (75-100) mg/dL Total Creatine Kinase (55-170) units/L CK-MB (CK-2) Rel Index (0-4) NT-Pro-B Natriuret Pep (0-900) pg/mL Albumin (3.9-5) g/dL Digoxin (0.9-2.0) ng/mL
[2017-09-08] MEDS ORDERED: NACL 0.9% 250ML 250 ML IV ONE (13:06)
--- NOTE | 2017-09-08 13:35 | Consultation ---
History of Present Illness Consult date: 09/08/17 Consult reason: atrial fibrillation, congestive heart failure History of present illness: This is a 62yr old male with a history of dilated nonischemic cardiomyopathy with an ejection fraction of 15%. In addition, he has chronic atrial fibrillation, previously recommended for warfarin for oral anticoagulation. The patient presents to the emergency department with alteration of mental status. A cardiac consultation is requested for CHF evaluation and management. Patient admits to shortness of breath on exertion. He denies palpitations. There is no lower extremity edema. It's reported the patient has been noncompliant with his medications. Laboratory studies reports a sub-therapeutic INR of 1.2. Digoxin level of 0.3. His chest xray documents a cardiomegaly but there is no reports interstitial edema. His presenting ECG is atrial fibrillation with a controlled ventricular rate. Medications and Allergies Allergies Allergy/AdvReac Type Severity Reaction Status Date / Time No Known Allergies Allergy Verified 08/17/17 06:49 Home Medications Medication Instructions Recorded Confirmed Last Taken Type Insulin NPH, Human [NovoLIN N] 45 unit SUB-Q QAM 10/08/13 09/07/17 10/08/13 History Insulin NPH, Human [NovoLIN N] 45 unit SUB-Q QPM 10/08/13 09/07/17 10/07/13 History Aspirin EC [Aspirin Enteric Coated 81 mg PO QDAY #30 tablet. 10/09/13 Unknown Rx TAB] Lovastatin [Mevacor] 40 mg PO QDAY #30 tablet 10/10/13 09/07/17 Unknown Rx Bumetanide [Bumex 1 mg tab] 1 mg PO BID #60 tab 08/24/17 09/07/17 Unknown Rx Carvedilol [Coreg] 12.5 mg PO BID #60 tablet 08/24/17 09/07/17 Unknown Rx Digoxin [Lanoxin] 0.25 mg PO DAILY@1700 #30 tablet 08/24/17 09/07/17 Unknown Rx Lisinopril [Prinivil] 10 mg PO DAILY #30 tablet 08/24/17 09/07/17 Unknown Rx Warfarin [Coumadin] 7.5 mg PO DAILY@1700 #30 tablet 08/24/17 09/07/17 Unknown Rx Active Meds: Active Medications Acetaminophen (Tylenol) 650 mg PO Q4H PRN PRN Reason: Pain MILD(1-3)/Fever >100.5/COLON Aspirin (Halfprin Ec) 81 mg PO QDAY [facility] Last Admin: 09/08/17 10:50 Dose: 81 mg Carvedilol (Coreg) 12.5 mg PO BID [facility] Last Admin: 09/08/17 10:54 Dose: Not Given Digoxin (Lanoxin) 0.25 mg PO DAILY@1700 TIMMY Enoxaparin Sodium (Lovenox) 40 mg SUB-Q QDAY [facility] Last Admin: 09/08/17 10:50 Dose: 40 mg Furosemide (Lasix) 40 mg IV 0600,1800 [facility] Last Admin: 09/08/17 06:55 Dose: 40 mg Azithromycin 500 mg/ Sodium (Chloride) 250 mls @ 250 mls/hr IV Q24HR [facility]; Protocol Last Admin: 09/08/17 10:53 Dose: 250 mls/hr Ceftriaxone Sodium 1 gm/ (Sodium Chloride) 20 mls @ 2 mls/min IV Q24HR [facility] Lisinopril (Zestril) 10 mg PO DAILY [facility] Last Admin: 09/08/17 10:54 Dose: Not Given Ondansetron HCl (Zofran) 4 mg IV Q8H PRN PRN Reason: Nausea And Vomiting Pravastatin Sodium (Pravachol) 40 mg PO QHS [facility] Sodium Chloride (Sodium Chloride Flush Syringe 10 Ml) 10 ml IV BID [facility] Last Admin: 09/08/17 10:52 Dose: 10 ml Sodium Chloride (Sodium Chloride Flush Syringe 10 Ml) 10 ml IV PRN PRN PRN Reason: LINE FLUSH Physical Examination Vital Signs Pulse Ox 95 09/07/17 17:56 General appearance: no acute distress HEENT: Positive: PERRL Cardiac: Positive: irregularly irregular Neuro: Positive: Grossly Intact Extremities: Absent: edema Results 09/07/17 18:34 09/07/17 18:34 Cardiac Enzymes 09/07/17 09/08/17 09/08/17 Range/Units 18:34 04:13 09:10 AST 25 (5-40) units/L CK-MB (CK-2) 2.9 2.8 (0.0-4.0) ng/mL Coagulation 09/07/17 09/08/17 Range/Units 18:34 09:10 PT 16.0 H 15.9 H (12.2-14.9) Sec. INR 1.21 H 1.20 H (0.87-1.13) APTT 30.3 (24.2-36.6) Sec. CBC 09/07/17 Range/Units 18:34 WBC 8.7 (4.5-11.0) K/mm3 RBC 4.95 (3.65-5.03) M/mm3 Hgb 14.0 (11.8-15.2) gm/dl Hct 42.6 (35.5-45.6) % Plt Count 234 (140-440) K/mm3 Lymph # 1.0 L (1.2-5.4) K/mm3 [place] # 0.8 (0.0-0.8) K/mm3 Eos # 0.3 (0.0-0.4) K/mm3 Baso # 0.1 (0.0-0.1) K/mm3 Comprehensive Metabolic Panel 09/07/17 Range/Units 18:34 Sodium 133 L (137-145) mmol/L Potassium 4.0 (3.6-5.0) mmol/L Chloride 94.4 L (98-107) mmol/L Carbon Dioxide 27 (22-30) mmol/L BUN 22 H (9-20) mg/dL Creatinine 1.0 (0.8-1.5) mg/dL Glucose 134 H (75-100) mg/dL Calcium 8.6 (8.4-10.2) mg/dL AST 25 (5-40) units/L ALT 25 (7-56) units/L Alkaline Phosphatase 78 (35-129) units/L Total Protein 6.6 (6.3-8.2) g/dL Albumin 3.3 L (3.9-5) g/dL Assessment and Plan Alteration of mental status Chronic atrial fibrillation Nonischemic cardiomyopathy, EF 15% no ischemia on MPI 08/2017 Noncompliance with medications
[2017-09-08] MEDS ORDERED: NACL 0.9% 250ML 250 ML ONE (15:30)
[2017-09-08 17:02] LABS: Chol/HDL Ratio 4.5 %
[2017-09-08] MEDS: LANOXIN PO SCH (18:03)
[2017-09-08] MEDS: PRAVACHOL PO SCH (22:12)
[2017-09-08] MEDS: TYLENOL PO PRN (22:15)
[2017-09-09] MEDS: LASIX IV SCH (06:52)
[2017-09-09 07:05] LABS: Basophils # (Auto) 0.1 K/mm3 (0.0-0.1); Basophils % (Auto) 1.1 % (0.0-1.8); Eosinophils # (Auto) 0.3 K/mm3 (0.0-0.4); Eosinophils % (Auto) 5.4 % (0.0-4.3); Hematocrit 41.2 % (35.5-45.6); Hemoglobin 13.5 gm/dl (11.8-15.2); Lymphocytes # (Auto) 1.2 K/mm3 (1.2-5.4); Lymphocytes % (Auto) 22.6 % (13.4-35.0); Mean Corpuscular HGB Conc 33 % (32-34); Mean Corpuscular Hemoglobin 28 pg (28-32); Mean Corpuscular Volume 86 fl (84-94); Monocytes # (Auto) 0.8 K/mm3 (0.0-0.8); Monocytes % (Auto) 15.3 % (0.0-7.3); Platelet Count 240 K/mm3 (140-440); Red Blood Count 4.81 M/mm3 (3.65-5.03); Red Cell Distribution Width 14.4 % (13.2-15.2)
[2017-09-09 07:14] LABS: INR 1.15 (0.87-1.13)
[2017-09-09 07:24] LABS: BUN/Creatinine Ratio 22; Blood Urea Nitrogen 22 mg/dL (9-20); Calcium 7.9 mg/dL (8.4-10.2); Hemolysis Index 8
[2017-09-09] MEDS: ZESTRIL PO SCH (11:05)
[2017-09-09] MEDS: cefTRIAXone 1 GM in NACL 0.9% 20 ML IV SCH (11:18)
[2017-09-09] MEDS: COREG PO SCH ×2 (11:35→22:51)
[2017-09-09] MEDS: HALFPRIN EC PO SCH (11:45)
[2017-09-09] MEDS: SODIUM CHLORIDE FLUSH SYRINGE 10 ML IV SCH ×2 (11:45→22:53)
[2017-09-09] MEDS: LOVENOX SUB-Q SCH (11:45)
--- NOTE | 2017-09-09 12:10 | Progress Note ---
Assessment and Plan Alteration of mental status - improved Chronic atrial fibrillation Nonischemic cardiomyopathy, EF 15% no ischemia on MPI 08/2017 Noncompliance with medications Polysubstance abuse Marijunana and amphetamines in urine Recommendations: Medical therapy for NICMP Advised abstinence from marijuana and amphetamines Discontinue lisinopril and IV lasix due to hypotension Decrease coreg to 3.125 mg po bid Resume warfarin Rx for afib Subjective Date of service: 09/09/17 Principal diagnosis: Metabolic encephalopathy, Acute bacterail pneumonia Interval history: Patient denies chest pain or shortness of breath Patient admits to polysubstance abuse Objective Vital Signs Temp Pulse Pulse Pulse Resp BP BP 09/09/17 11:05 90/09/09/17 10:00 09/09/17 07:56 98.0 F 18 09/09/17 05:50 97.5 F L 101 H 18 87/49 09/09/17 05:40 97.5 F L 101 H 18 49 09/09/17 05:24 108 H 09/09/17 01:06 99 H 09/09/17 01:05 98.3 F 97 H 18 87/51 09/08/17 23:00 113 H 09/08/17 22:52 09/08/17 22:14 116 H 102/70 09/08/17 22:00 120 H 123 H 20 09/08/17 20:01 98.0 F 124 H 18 102/75 09/08/17 18:03 116 H 110/79 09/08/17 17:38 97.9 F 116 H 18 110/79 09/08/17 16:50 98.6 F 20 110/79 09/08/17 14:55 98.3 F 122 H 20 99/78 09/08/17 14:25 98.9 F 128 H 20 101/60 09/08/17 14:10 126 H 22 100/62 09/08/17 14:00 128 H 26 H 100/62 09/08/17 13:50 133 H 23 09/08/17 13:40 127 H 28 H 09/08/17 13:30 126 H 20 09/08/17 13:26 138 H 23 Pulse Ox 09/09/17 11:05 09/09/17 10:00 97 09/09/17 07:56 09/09/17 05:50 92 09/09/17 05:40 92 09/09/17 05:24 91 09/09/17 01:06 85 09/09/17 01:05 92 09/08/17 23:00 09/08/17 22:52 97 09/08/17 22:14 09/08/17 22:00 97 09/08/17 20:01 94 09/08/17 18:03 09/08/17 17:38 98 09/08/17 16:50 09/08/17 14:55 91 09/08/17 14:25 98 09/08/17 14:10 99 09/08/17 14:00 97 09/08/17 13:50 99 09/08/17 13:40 99 09/08/17 13:30 99 09/08/17 13:26 100 - Physical Examination HEENT: Positive: PERRL Neck: Positive: neck supple Cardiac: Positive: irregularly irregular Lungs: Positive: Normal Exam Neuro: Positive: Grossly Intact Extremities: Absent: edema - Labs and Meds Coagulation 09/09/17 Range/Units 06:37 PT 15.3 H (12.2-14.9) Sec. INR 1.15 H (0.87-1.13) APTT 31.0 (24.2-36.6) Sec. Lipids 09/08/17 Range/Units 16:06 Triglycerides 78 (2-149) mg/dL Cholesterol 90 (50-199) mg/dL HDL Cholesterol 20 L (40-59) mg/dL Cholesterol/HDL Ratio 4.50 % CBC 09/09/17 Range/Units 06:37 WBC 5.2 (4.5-11.0) K/mm3 RBC 4.81 (3.65-5.03) M/mm3 Hgb 13.5 (11.8-15.2) gm/dl Hct 41.2 (35.5-45.6) % Plt Count 240 (140-440) K/mm3 Lymph # 1.2 (1.2-5.4) K/mm3 [place] # 0.8 (0.0-0.8) K/mm3 Eos # 0.3 (0.0-0.4) K/mm3 Baso # 0.1 (0.0-0.1) K/mm3 Comprehensive Metabolic Panel 05/25/18 Range/Units 06:37 Sodium 136 L (137-145) mmol/L Potassium 3.7 (3.6-5.0) mmol/L Chloride 98.7 (98-107) mmol/L Carbon Dioxide 24 (22-30) mmol/L BUN 22 H (9-20) mg/dL Creatinine 1.0 (0.8-1.5) mg/dL Glucose 118 H (75-100) mg/dL Calcium 7.9 L (8.4-10.2) mg/dL - Imaging and Cardiology EKG: image reviewed
--- NOTE | 2017-09-09 12:23 | Progress Note ---
Assessment and Plan Assessment and plan: A/P Community-acquired pneumonia right uppeer lobe Dilated Nonischemic cardiomyopathy with EF 15% as of 06/2017 Atrial fibrillation with rapid ventricular response. fib Hypertension Diabetes mellitus type 2 Plan Rocephin and zithromax for management of pneumonia Continue IV antibiotics, Follow cultures Continue with IV Lasix, Strick Is and Os daily weight, Continue Coreg, ACEI, Statin, ECHO, Lipid panel and TSH Check cardiac enzymes, continue relevant out pt meds DVT prophylaxis with Lovenox History Interval history: Altered mental status, Chronic pain Hospitalist Physical - Physical exam Narrative exam: General: Not in acute distress, lying in bed HEENT:Normocephalic, atraumatic Neck:supple,no JVD Lungs: Clear to auscultation bilaterally, no crackles, no wheeze Heart:S1 and S2 regular ,, no murmurs, rubs or gallop Abd: soft, non tender, non distended, normal bowel sounds Ext: No edema, no clubbing, no cyanosis Neuro: AAO x 3, moves all extremities. - Constitutional Vitals: Temp Pulse Resp BP Pulse Ox 98.0 F 101 H 18 90/55 97 09/09/17 07:56 09/09/17 05:50 09/09/17 07:56 09/09/17 11:05 09/09/17 10:00 General appearance: Present: no acute distress, well-nourished, other (confused) Results - Labs CBC & Chem 7: 09/09/17 06:37 09/09/17 06:37 Labs: Laboratory Last Values WBC 5.2 K/mm3 (4.5-11.0) 09/09/17 06:37 RBC 4.81 M/mm3 (3.65-5.03) 09/09/17 06:37 Hgb 13.5 gm/dl (11.8-15.2) 09/09/17 06:37 Hct 41.2 % (35.5-45.6) 09/09/17 06:37 MCV 86 fl (84-94) 09/09/17 06:37 MCH 28 pg (28-32) 09/09/17 06:37 MCHC 33 % (32-34) 09/09/17 06:37 RDW 14.4 % (13.2-15.2) 09/09/17 06:37 Plt Count 240 K/mm3 (140-440) 09/09/17 06:37 Lymph % (Auto) 22.6 % (13.4-35.0) 09/09/17 06:37 [place] % (Auto) 15.3 % (0.0-7.3) H 09/09/17 06:37 Eos % (Auto) 5.4 % (0.0-4.3) H 09/09/17 06:37 Baso % (Auto) 1.1 % (0.0-1.8) 09/09/17 06:37 Lymph # 1.2 K/mm3 (1.2-5.4) 09/09/17 06:37 [place] # 0.8 K/mm3 (0.0-0.8) 09/09/17 06:37 Eos # 0.3 K/mm3 (0.0-0.4) 09/09/17 06:37 Baso # 0.1 K/mm3 (0.0-0.1) 09/09/17 06:37 Seg Neutrophils % 55.6 % (40.0-70.0) 09/09/17 06:37 Seg Neutrophils # 2.9 K/mm3 (1.8-7.7) 09/09/17 06:37 PT 15.3 Sec. (12.2-14.9) H 09/09/17 06:37 INR 1.15 (0.87-1.13) H 09/09/17 06:37 APTT 31.0 Sec. (24.2-36.6) 09/09/17 06:37 Sodium 136 mmol/L (137-145) L 09/09/17 06:37 Potassium 3.7 mmol/L (3.6-5.0) 09/09/17 06:37 Chloride 98.7 mmol/L (98-107) 09/09/17 06:37 Carbon Dioxide 24 mmol/L (22-30) 09/09/17 06:37 Anion Gap 17 mmol/L 09/09/17 06:37 BUN 22 mg/dL (9-20) H 09/09/17 06:37 Creatinine 1.0 mg/dL (0.8-1.5) 09/09/17 06:37 Estimated GFR > 60 ml/min 09/09/17 06:37 BUN/Creatinine Ratio 22 % 09/09/17 06:37 Glucose 118 mg/dL (75-100) H 09/09/17 06:37 POC Glucose 122 (70-105) H 09/09/17 06:32 Lactic Acid 1.20 mmol/L (0.7-2.0) 09/07/17 18:34 Calcium 7.9 mg/dL (8.4-10.2) L 09/09/17 06:37 Phosphorus 3.50 mg/dL (2.5-4.5) 09/09/17 06:37 Magnesium 1.70 mg/dL (1.7-2.3) 09/09/17 06:37 Total Bilirubin 0.90 mg/dL (0.1-1.2) 09/07/17 18:34 AST 25 units/L (5-40) 09/07/17 18:34 ALT 25 units/L (7-56) 09/07/17 18:34 Alkaline Phosphatase 78 units/L (35-129) 09/07/17 18:34 Ammonia 28.0 umol/L (25-60) 09/07/17 18:34 Total Creatine Kinase 112 units/L (55-170) 09/08/17 09:10 CK-MB (CK-2) 2.8 ng/mL (0.0-4.0) 09/08/17 09:10 CK-MB (CK-2) Rel Index 2.5 (0-4) 09/08/17 09:10 Troponin T 0.019 ng/mL (0.00-0.029) 09/08/17 09:10 NT-Pro-B Natriuret Pep 51453 pg/mL (0-900) H 09/07/17 18:34 Total Protein 6.6 g/dL (6.3-8.2) 09/07/17 18:34 Albumin 3.3 g/dL (3.9-5) L 09/07/17 18:34 Albumin/Globulin Ratio 1.0 % 09/07/17 18:34 Triglycerides 78 mg/dL (2-149) 09/08/17 16:06 Cholesterol 90 mg/dL (50-199) 09/08/17 16:06 LDL Cholesterol Direct 55 mg/dL (50-130) 09/08/17 16:06 HDL Cholesterol 20 mg/dL (40-59) L 09/08/17 16:06 Cholesterol/HDL Ratio 4.50 % 09/08/17 16:06 Lipase 17 units/L (13-60) 09/07/17 18:34 TSH 0.583 mlU/mL (0.270-4.200) 09/08/17 16:06 Digoxin 0.3 ng/mL (0.9-2.0) L 09/07/17 18:34 Urine Opiates Screen Presumptive negative 09/07/17 22:01 Urine Methadone Screen Presumptive negative 09/07/17 22:01 Ur Barbiturates Screen Presumptive negative 09/07/17 22:01 Ur Phencyclidine Scrn Presumptive negative 09/07/17 22:01 Ur Amphetamines Screen Presumptive positive 09/07/17 22:01 U Benzodiazepines Scrn Presumptive negative 09/07/17 22:01 Urine Cocaine Screen Presumptive negative 09/07/17 22:01 U Marijuana (THC) Screen Presumptive positive 09/07/17 22:01 Drugs of Abuse Note Disclamer 09/07/17 22:01 Plasma/Serum Alcohol < 0.01 % (0-0.07) 09/07/17 18:34 C. difficile Toxin A&B Negative (Negative) 09/07/17 11:00
[2017-09-09] MEDS: ZITHROMAX 500 MG in NACL 0.9% 250ML 250 ML IV SCH (14:15)
[2017-09-09] MEDS: ZOFRAN IV PRN (15:34)
[2017-09-09] MEDS: PERCOCET 5/325 PO PRN ×2 (15:34→22:52)
[2017-09-09] MEDS ORDERED: COUMADIN PO NR (17:00)
[2017-09-09] MEDS ORDERED: COUMADIN PO SCH (17:00)
[2017-09-09] MEDS: LANOXIN PO SCH (19:12)
[2017-09-09] MEDS: PRAVACHOL PO SCH (22:52)
[2017-09-09] MEDS: MUCINEX ER PO SCH (22:53)
--- NOTE | 2017-09-10 09:40 | Progress Note ---
Assessment and Plan 1. Chronic atrial fibrillation with controlled ventricular response 2. Dilated nonischemic cardiomyopathy left ventricular ejection fraction of 15% 3. History of polysubstance abuse 4. History of noncompliance on medication 5. Altered mental status Plan. Continue above medication for low PT and INR. Subjective Date of service: 09/10/17 Principal diagnosis: Cardiomyopathy Interval history: No cardiac symptoms Objective Vital Signs Temp Pulse Pulse Resp BP Pulse Ox 09/10/17 04:09 98.5 F 107 H 18 120/82 89 09/09/17 23:55 98.3 F 101 H 18 97/73 96 09/09/17 23:00 100 H 09/09/17 21:24 96 09/09/17 19:42 98.2 F 100 H 18 126/87 96 09/09/17 19:12 129 H 09/09/17 16:22 97.9 F 18 118/84 09/09/17 13:04 97.9 F 127 H 18 107/87 97 09/09/17 11:05 90/55 09/09/17 10:00 112 H 97 - Physical Examination General: Appears Well, No Apparent Distress HEENT: Positive: PERRL, Normocephaly, Mucus Membranes Moist Neck: Positive: neck supple. Negative: JVD/HJR Cardiac: Positive: Regular Rate, S1/S2, S3, PMI, Dilated, Laterally Displaced Lungs: Positive: clear to auscultation, No Wheeze, Rales, Rhonchi Neuro: Positive: Grossly Intact Abdomen: Positive: Unremarkable, Soft, Active Bowel Sounds Extremities: Absent: edema - Imaging and Cardiology EKG: image reviewed
[2017-09-10] MEDS: cefTRIAXone 1 GM in NACL 0.9% 20 ML IV SCH (11:14)
[2017-09-10] MEDS: SODIUM CHLORIDE FLUSH SYRINGE 10 ML IV SCH ×2 (11:15→21:23)
[2017-09-10] MEDS: LOVENOX SUB-Q SCH (11:15)
[2017-09-10] MEDS: MUCINEX ER PO SCH ×2 (11:15→21:21)
[2017-09-10] MEDS: COREG PO SCH ×2 (11:15→21:21)
[2017-09-10] MEDS: HALFPRIN EC PO SCH (11:15)
[2017-09-10] MEDS: ZITHROMAX PO SCH (11:15)
[2017-09-10] MEDS: PERCOCET 5/325 PO PRN ×2 (11:36→20:18)
[2017-09-10 14:49] LABS: INR 1.1 (0.87-1.13)
[2017-09-10] MEDS: LANOXIN PO SCH (16:29)
[2017-09-10] MEDS: COUMADIN PO SCH (16:29)
--- NOTE | 2017-09-10 16:55 | Progress Note ---
Assessment and Plan Assessment and plan: A/P Community-acquired pneumonia right uppeer lobe Dilated Nonischemic cardiomyopathy with EF 15% as of 06/2017 Atrial fibrillation with rapid ventricular response. Hypertension Diabetes mellitus type 2 Chronic pain Plan Rocephin and zithromax for management of pneumonia Continue IV antibiotics, Follow cultures Continue with IV Lasix, Strict Is and Os daily weight, Continue Coreg, Digoxin, Statin, Lipid panel and TSH Coumadin resumed for full anticoagulation for afib DVT prophylaxis with Lovenox Full code status History Interval history: Altered mental status,improved Chronic pain, palpitation no chest pain Hospitalist Physical - Physical exam Narrative exam: General: Not in acute distress, lying in bed HEENT:Normocephalic, atraumatic Neck:supple,no JVD Lungs: Clear to auscultation bilaterally, no crackles, no wheeze Heart:S1 and S2 irregular rapid,, no murmurs, rubs or gallop Abd: soft, non tender, non distended, normal bowel sounds Ext: No edema, no clubbing, no cyanosis Neuro: AAO x 3, moves all extremities. - Constitutional Vitals: Temp Pulse Resp BP Pulse Ox 98.6 F 91 H 18 101/73 95 09/10/17 13:15 09/10/17 10:00 09/10/17 13:15 09/10/17 13:15 09/10/17 14:35 General appearance: Present: no acute distress, well-nourished, other (confused) Results - Labs CBC & Chem 7: 09/09/17 06:37 09/09/17 06:37 Labs: Laboratory Last Values WBC 5.2 K/mm3 (4.5-11.0) 09/09/17 06:37 RBC 4.81 M/mm3 (3.65-5.03) 09/09/17 06:37 Hgb 13.5 gm/dl (11.8-15.2) 09/09/17 06:37 Hct 41.2 % (35.5-45.6) 09/09/17 06:37 MCV 86 fl (84-94) 09/09/17 06:37 MCH 28 pg (28-32) 09/09/17 06:37 MCHC 33 % (32-34) 09/09/17 06:37 RDW 14.4 % (13.2-15.2) 09/09/17 06:37 Plt Count 240 K/mm3 (140-440) 09/09/17 06:37 Lymph % (Auto) 22.6 % (13.4-35.0) 09/09/17 06:37 [place] % (Auto) 15.3 % (0.0-7.3) H 09/09/17 06:37 Eos % (Auto) 5.4 % (0.0-4.3) H 09/09/17 06:37 Baso % (Auto) 1.1 % (0.0-1.8) 09/09/17 06:37 Lymph # 1.2 K/mm3 (1.2-5.4) 09/09/17 06:37 [place] # 0.8 K/mm3 (0.0-0.8) 09/09/17 06:37 Eos # 0.3 K/mm3 (0.0-0.4) 09/09/17 06:37 Baso # 0.1 K/mm3 (0.0-0.1) 09/09/17 06:37 Seg Neutrophils % 55.6 % (40.0-70.0) 09/09/17 06:37 Seg Neutrophils # 2.9 K/mm3 (1.8-7.7) 09/09/17 06:37 PT 14.8 Sec. (12.2-14.9) 09/10/17 14:15 INR 1.10 (0.87-1.13) 09/10/17 14:15 APTT 31.0 Sec. (24.2-36.6) 09/09/17 06:37 Sodium 136 mmol/L (137-145) L 09/09/17 06:37 Potassium 3.7 mmol/L (3.6-5.0) 09/09/17 06:37 Chloride 98.7 mmol/L (98-107) 09/09/17 06:37 Carbon Dioxide 24 mmol/L (22-30) 09/09/17 06:37 Anion Gap 17 mmol/L 09/09/17 06:37 BUN 22 mg/dL (9-20) H 09/09/17 06:37 Creatinine 1.0 mg/dL (0.8-1.5) 09/09/17 06:37 Estimated GFR > 60 ml/min 05/25/18 06:37 BUN/Creatinine Ratio 22 % 09/09/17 06:37 Glucose 118 mg/dL (75-100) H 09/09/17 06:37 POC Glucose 163 (70-105) H 09/10/17 13:12 Lactic Acid 1.20 mmol/L (0.7-2.0) 09/07/17 18:34 Calcium 7.9 mg/dL (8.4-10.2) L 09/09/17 06:37 Phosphorus 3.50 mg/dL (2.5-4.5) 09/09/17 06:37 Magnesium 1.70 mg/dL (1.7-2.3) 09/09/17 06:37 Total Bilirubin 0.90 mg/dL (0.1-1.2) 09/07/17 18:34 AST 25 units/L (5-40) 09/07/17 18:34 ALT 25 units/L (7-56) 09/07/17 18:34 Alkaline Phosphatase 78 units/L (35-129) 09/07/17 18:34 Ammonia 28.0 umol/L (25-60) 09/07/17 18:34 Total Creatine Kinase 112 units/L (55-170) 09/08/17 09:10 CK-MB (CK-2) 2.8 ng/mL (0.0-4.0) 09/08/17 09:10 CK-MB (CK-2) Rel Index 2.5 (0-4) 09/08/17 09:10 Troponin T 0.019 ng/mL (0.00-0.029) 09/08/17 09:10 NT-Pro-B Natriuret Pep 87108 pg/mL (0-900) H 09/07/17 18:34 Total Protein 6.6 g/dL (6.3-8.2) 09/07/17 18:34 Albumin 3.3 g/dL (3.9-5) L 09/07/17 18:34 Albumin/Globulin Ratio 1.0 % 09/07/17 18:34 Triglycerides 78 mg/dL (2-149) 09/08/17 16:06 Cholesterol 90 mg/dL (50-199) 09/08/17 16:06 LDL Cholesterol Direct 55 mg/dL (50-130) 09/08/17 16:06 HDL Cholesterol 20 mg/dL (40-59) L 09/08/17 16:06 Cholesterol/HDL Ratio 4.50 % 09/08/17 16:06 Lipase 17 units/L (13-60) 09/07/17 18:34 TSH 0.583 mlU/mL (0.270-4.200) 09/08/17 16:06 Digoxin 0.3 ng/mL (0.9-2.0) L 09/07/17 18:34 Urine Opiates Screen Presumptive negative 09/07/17 22:01 Urine Methadone Screen Presumptive negative 09/07/17 22:01 Ur Barbiturates Screen Presumptive negative 09/07/17 22:01 Ur Phencyclidine Scrn Presumptive negative 09/07/17 22:01 Ur Amphetamines Screen Presumptive positive 09/07/17 22:01 U Benzodiazepines Scrn Presumptive negative 09/07/17 22:01 Urine Cocaine Screen Presumptive negative 09/07/17 22:01 U Marijuana (THC) Screen Presumptive positive 09/07/17 22:01 Drugs of Abuse Note Disclamer 09/07/17 22:01 Plasma/Serum Alcohol < 0.01 % (0-0.07) 09/07/17 18:34 C. difficile Toxin A&B Negative (Negative) 09/07/17 11:00
[2017-09-10] MEDS: PRAVACHOL PO SCH (21:21)
[2017-09-11] MEDS: PERCOCET 5/325 PO PRN ×2 (05:05→21:24)
[2017-09-11 08:37] LABS: INR 1.26 (0.87-1.13)
--- NOTE | 2017-09-11 09:33 | Progress Note ---
Assessment and Plan 1. Chronic atrial fibrillation with controlled ventricular response 2. Dilated nonischemic cardiomyopathy left ventricular ejection fraction of 15% 3. History of polysubstance abuse 4. History of noncompliance on medication 5. Altered mental status Plan. Continue above medication follow PT/INR. Subjective Date of service: 09/11/17 Principal diagnosis: Cardiomyopathy Interval history: No cardiac symptoms Objective Vital Signs Temp Pulse Pulse Resp Resp BP BP 09/11/17 09:22 98.0 F 106 H 20 101/68 09/11/17 09:18 106 H 17 09/11/17 08:49 113 H 09/11/17 06:05 20 09/11/17 05:09 97.9 F 18 97/66 09/11/17 05:05 20 09/10/17 23:42 98.1 F 111 H 18 121/76 09/10/17 21:21 117 H 114/92 09/10/17 21:18 20 09/10/17 20:38 09/10/17 20:27 20 09/10/17 20:25 116 H 20 09/10/17 20:18 20 09/10/17 20:05 101 H 09/10/17 19:31 98.3 F 117 H 18 114/92 09/10/17 17:27 107/81 09/10/17 14:35 09/10/17 13:15 98.6 F 18 101/73 09/10/17 10:00 91 H 91 H 18 Pulse Ox 09/11/17 09:22 96 09/11/17 09:18 98 09/11/17 08:49 95 09/11/17 06:05 09/11/17 05:09 09/11/17 05:05 09/10/17 23:42 98 09/10/17 21:21 09/10/17 21:18 09/10/17 20:38 97 09/10/17 20:27 09/10/17 20:25 98 09/10/17 20:18 09/10/17 20:05 09/10/17 19:31 94 09/10/17 17:27 09/10/17 14:35 95 09/10/17 13:15 09/10/17 10:00 96 - Physical Examination General: Appears Well, No Apparent Distress HEENT: Positive: PERRL, Normocephaly, Mucus Membranes Moist Neck: Positive: neck supple. Negative: JVD/HJR Cardiac: Positive: Regular Rate, S1/S2, PMI, Laterally Displaced. Negative: S3 , S4 Lungs: Positive: clear to auscultation, No Wheeze, Rales, Rhonchi Neuro: Positive: Grossly Intact, No Lateralizing Findings Abdomen: Positive: Unremarkable, Soft, Active Bowel Sounds Extremities: Absent: edema - Labs and Meds Coagulation 09/10/17 09/11/17 Range/Units 14:15 07:46 PT 14.8 16.5 H (12.2-14.9) Sec. INR 1.10 1.26 H (0.87-1.13) - Imaging and Cardiology EKG: image reviewed
[2017-09-11] MEDS: ZITHROMAX PO SCH (10:44)
[2017-09-11] MEDS: HALFPRIN EC PO SCH (10:44)
[2017-09-11] MEDS: MUCINEX ER PO SCH ×2 (10:44→21:25)
[2017-09-11] MEDS: COREG PO SCH ×2 (10:44→21:25)
[2017-09-11] MEDS: SODIUM CHLORIDE FLUSH SYRINGE 10 ML IV SCH ×2 (10:45→21:26)
[2017-09-11] MEDS: LOVENOX SUB-Q SCH (10:45)
[2017-09-11] MEDS: cefTRIAXone 1 GM in NACL 0.9% 20 ML IV SCH (10:53)
--- NOTE | 2017-09-11 16:54 | Progress Note ---
Hospitalist Physical - Constitutional Vitals: Temp Pulse Resp BP Pulse Ox 98.4 F 91 H 20 109/72 95 09/11/17 12:25 09/11/17 12:25 09/11/17 12:25 09/11/17 12:25 09/11/17 12:25 General appearance: Present: no acute distress, well-nourished, other (confused) Results - Labs CBC & Chem 7: 09/09/17 06:37 09/09/17 06:37 Labs: Laboratory Last Values WBC 5.2 K/mm3 (4.5-11.0) 09/09/17 06:37 RBC 4.81 M/mm3 (3.65-5.03) 09/09/17 06:37 Hgb 13.5 gm/dl (11.8-15.2) 09/09/17 06:37 Hct 41.2 % (35.5-45.6) 09/09/17 06:37 MCV 86 fl (84-94) 09/09/17 06:37 MCH 28 pg (28-32) 09/09/17 06:37 MCHC 33 % (32-34) 09/09/17 06:37 RDW 14.4 % (13.2-15.2) 09/09/17 06:37 Plt Count 240 K/mm3 (140-440) 09/09/17 06:37 Lymph % (Auto) 22.6 % (13.4-35.0) 09/09/17 06:37 C[place]ay % (Auto) 15.3 % (0.0-7.3) H 09/09/17 06:37 Eos % (Auto) 5.4 % (0.0-4.3) H 09/09/17 06:37 Baso % (Auto) 1.1 % (0.0-1.8) 09/09/17 06:37 Lymph # 1.2 K/mm3 (1.2-5.4) 09/09/17 06:37 C[place]ay # 0.8 K/mm3 (0.0-0.8) 09/09/17 06:37 Eos # 0.3 K/mm3 (0.0-0.4) 09/09/17 06:37 Baso # 0.1 K/mm3 (0.0-0.1) 09/09/17 06:37 Seg Neutrophils % 55.6 % (40.0-70.0) 09/09/17 06:37 Seg Neutrophils # 2.9 K/mm3 (1.8-7.7) 09/09/17 06:37 PT 16.5 Sec. (12.2-14.9) H 09/11/17 07:46 INR 1.26 (0.87-1.13) H 09/11/17 07:46 APTT 31.0 Sec. (24.2-36.6) 09/09/17 06:37 Sodium 136 mmol/L (137-145) L 09/09/17 06:37 Potassium 3.7 mmol/L (3.6-5.0) 09/09/17 06:37 Chloride 98.7 mmol/L (98-107) 09/09/17 06:37 Carbon Dioxide 24 mmol/L (22-30) 09/09/17 06:37 Anion Gap 17 mmol/L 09/09/17 06:37 BUN 22 mg/dL (9-20) H 09/09/17 06:37 Creatinine 1.0 mg/dL (0.8-1.5) 09/09/17 06:37 Estimated GFR > 60 ml/min 09/09/17 06:37 BUN/Creatinine Ratio 22 % 09/09/17 06:37 Glucose 118 mg/dL (75-100) H 09/09/17 06:37 POC Glucose 196 (70-105) H 09/11/17 16:17 Lactic Acid 1.20 mmol/L (0.7-2.0) 09/07/17 18:34 Calcium 7.9 mg/dL (8.4-10.2) L 09/09/17 06:37 Phosphorus 3.50 mg/dL (2.5-4.5) 09/09/17 06:37 Magnesium 1.70 mg/dL (1.7-2.3) 09/09/17 06:37 Total Bilirubin 0.90 mg/dL (0.1-1.2) 09/07/17 18:34 AST 25 units/L (5-40) 09/07/17 18:34 ALT 25 units/L (7-56) 09/07/17 18:34 Alkaline Phosphatase 78 units/L (35-129) 09/07/17 18:34 Ammonia 28.0 umol/L (25-60) 09/07/17 18:34 Total Creatine Kinase 112 units/L (55-170) 09/08/17 09:10 CK-MB (CK-2) 2.8 ng/mL (0.0-4.0) 09/08/17 09:10 CK-MB (CK-2) Rel Index 2.5 (0-4) 09/08/17 09:10 Troponin T 0.019 ng/mL (0.00-0.029) 09/08/17 09:10 NT-Pro-B Natriuret Pep 24528 pg/mL (0-900) H 09/07/17 18:34 Total Protein 6.6 g/dL (6.3-8.2) 09/07/17 18:34 Albumin 3.3 g/dL (3.9-5) L 09/07/17 18:34 Albumin/Globulin Ratio 1.0 % 09/07/17 18:34 Triglycerides 78 mg/dL (2-149) 09/08/17 16:06 Cholesterol 90 mg/dL (50-199) 09/08/17 16:06 LDL Cholesterol Direct 55 mg/dL (50-130) 09/08/17 16:06 HDL Cholesterol 20 mg/dL (40-59) L 09/08/17 16:06 Cholesterol/HDL Ratio 4.50 % 09/08/17 16:06 Lipase 17 units/L (13-60) 09/07/17 18:34 TSH 0.583 mlU/mL (0.270-4.200) 09/08/17 16:06 Digoxin 0.3 ng/mL (0.9-2.0) L 09/07/17 18:34 Urine Opiates Screen Presumptive negative 09/07/17 22:01 Urine Methadone Screen Presumptive negative 09/07/17 22:01 Ur Barbiturates Screen Presumptive negative 09/07/17 22:01 Ur Phencyclidine Scrn Presumptive negative 09/07/17 22:01 Ur Amphetamines Screen Presumptive positive 09/07/17 22:01 U Benzodiazepines Scrn Presumptive negative 09/07/17 22:01 Urine Cocaine Screen Presumptive negative 09/07/17 22:01 U Marijuana (THC) Screen Presumptive positive 05/23/18 22:01 Drugs of Abuse Note Disclamer 09/07/17 22:01 Plasma/Serum Alcohol < 0.01 % (0-0.07) 09/07/17 18:34 C. difficile Toxin A&B Negative (Negative) 09/07/17 11:00
[2017-09-11] MEDS: LANOXIN PO SCH (16:57)
[2017-09-11] MEDS: COUMADIN PO SCH ×2 (16:58)
--- NOTE | 2017-09-11 17:57 | Cat Scan Report ---
FINAL REPORT PROCEDURE: CT HEAD/BRAIN WO CON TECHNIQUE: Computerized tomography of the head was performed without contrast material. HISTORY: altered mental status COMPARISON: No prior studies are available for comparison. FINDINGS: There is low-attenuation in the right peripheral parieto-occipital lobe, compatible with an area of acute to subacute infarct. Findings favored less likely related to vasogenic edema related to parenchymal mass. No acute hemorrhage is seen. Intracranial arteries are symmetric in density. No hydrocephalus. Calvarium is intact. There is bilateral maxillary and sphenoid sinus mucosal thickening. IMPRESSION: There is edema in the right parietal occipital region which is most consistent with acute to subacute right parieto-occipital infarct. No acute hemorrhage is seen. Findings are favored less likely to be related to edema related to any underlying mass. Evaluate with MRI. Findings were discussed by telephone with RALEIGH Herman at 4:49 p.m. central standard time on 09/11/2017
[2017-09-11] MEDS ORDERED: SODIUM CHLORIDE FLUSH SYRINGE 10 ML IV PRN (18:24)
[2017-09-11] MEDS: PRAVACHOL PO SCH (21:24)
[2017-09-11] MEDS: ZOFRAN IV PRN (21:30)
[2017-09-12] MEDS: PERCOCET 5/325 PO PRN ×2 (05:11→16:17)
--- NOTE | 2017-09-12 09:56 | Progress Note ---
Assessment and Plan 1. Chronic atrial fibrillation with controlled ventricular response 2. Dilated nonischemic cardiomyopathy left ventricular ejection fraction of 15% 3. History of polysubstance abuse 4. History of noncompliance on medication 5. Altered mental status Plan. Continue above medication follow PT/INR. Subjective Date of service: 09/12/17 Principal diagnosis: Cardiomyopathy Interval history: No cardiac symptoms Objective Vital Signs Temp Pulse Pulse Resp BP BP Pulse Ox 09/12/17 09:12 19 09/12/17 07:56 98.4 F 107 H 20 115/95 97 09/12/17 01:52 98.9 F 85 20 122/80 93 09/12/17 00:00 107 H 09/11/17 23:36 105 H 122/80 93 09/11/17 22:00 123 H 09/11/17 21:25 103 H 120/93 09/11/17 20:22 98.5 F 103 H 18 120/93 96 09/11/17 19:54 124 H 120/93 95 09/11/17 16:57 110 H 09/11/17 14:58 98.0 F 97 H 20 97/58 95 09/11/17 12:25 98.4 F 91 H 20 109/72 95 09/11/17 10:44 106 H 101/68 09/11/17 10:00 98 H - Physical Examination General: Appears Well, No Apparent Distress HEENT: Positive: PERRL, Normocephaly, Mucus Membranes Moist Neck: Positive: neck supple. Negative: JVD/HJR Cardiac: Positive: Regular Rate, S1/S2, S3, PMI, Laterally Displaced Lungs: Positive: clear to auscultation, No Wheeze, Rales, Rhonchi Neuro: Positive: Grossly Intact, No Lateralizing Findings Abdomen: Positive: Unremarkable, Soft, Active Bowel Sounds Extremities: Absent: edema - Imaging and Cardiology EKG: image reviewed - Telemetry EKG Rhythm: Sinus Rhythm
[2017-09-12] MEDS: MUCINEX ER PO SCH (10:21)
[2017-09-12] MEDS: ZITHROMAX PO SCH (10:22)
[2017-09-12] MEDS: HALFPRIN EC PO SCH (10:22)
[2017-09-12] MEDS: LOVENOX SUB-Q SCH (10:22)
[2017-09-12] MEDS: COREG PO SCH (10:22)
[2017-09-12] MEDS: SODIUM CHLORIDE FLUSH SYRINGE 10 ML IV SCH (10:23)
[2017-09-12] MEDS: cefTRIAXone 1 GM in NACL 0.9% 20 ML IV SCH (10:27)
[2017-09-12 11:03] LABS: INR 1.51 (0.87-1.13)
[2017-09-12 12:43] VITALS: BP 116/94
--- NOTE | 2017-09-12 12:49 | Progress Note ---
Subjective Date of service: 09/12/17 Principal diagnosis: Cardiomyopathy Interval history: patient and may go home on coumadin for atrial fibrillation expalined to patient he will need to stop methamphetamone... hx of heavy meth use in past see my note for the formal neuro exam sppoke to Dr. 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 Objective - Vital Sign Vital Signs - 12hr 09/12/17 09/12/17 09/12/17 01:52 07:56 09:12 Temperature 98.9 F 98.4 F Pulse Rate 85 107 H Respiratory 20 20 19 Rate Blood Pressure 115/95 Blood Pressure 122/80 [Right] O2 Sat by Pulse 93 97 Oximetry 09/12/17 10:22 Temperature Pulse Rate 107 H Respiratory Rate Blood Pressure 115/95 Blood Pressure [Right] O2 Sat by Pulse Oximetry - Laboratory Findings CBC and BMP: 09/09/17 06:37 09/09/17 06:37 Abnormal Lab Findings: Abnormal Labs 09/07/17 09/07/17 09/07/17 18:34 18:34 18:34 Lymph % (Auto) 11.1 L Cowley % (Auto) 9.6 H Eos % (Auto) Lymph # 1.0 L Seg Neutrophils % 75.5 H PT 16.0 H INR 1.21 H Sodium 133 L Chloride 94.4 L BUN 22 H Glucose 134 H POC Glucose Calcium Total Creatine Kinase CK-MB (CK-2) Rel Index NT-Pro-B Natriuret Pep Albumin 3.3 L HDL Cholesterol Digoxin 09/07/17 09/07/17 09/08/17 18:34 18:34 04:13 Lymph % (Auto) Cowley % (Auto) Eos % (Auto) Lymph # Seg Neutrophils % PT INR Sodium Chloride BUN Glucose POC Glucose Calcium Total Creatine Kinase 45 L CK-MB (CK-2) Rel Index 6.4 H NT-Pro-B Natriuret Pep 40554 H Albumin HDL Cholesterol Digoxin 0.3 L 09/08/17 09/08/17 09/08/17 09:10 16:06 16:57 Lymph % (Auto) Cowley % (Auto) Eos % (Auto) Lymph # Seg Neutrophils % PT 15.9 H INR 1.20 H Sodium Chloride BUN Glucose POC Glucose 193 H Calcium Total Creatine Kinase CK-MB (CK-2) Rel Index NT-Pro-B Natriuret Pep Albumin HDL Cholesterol 20 L Digoxin 09/08/17 09/09/17 09/09/17 22:17 06:32 06:37 Lymph % (Auto) Cow[place] % (Auto) 15.3 H Eos % (Auto) 5.4 H Lymph # Seg Neutrophils % PT INR Sodium Chloride BUN Glucose POC Glucose 146 H 122 H Calcium Total Creatine Kinase CK-MB (CK-2) Rel Index NT-Pro-B Natriuret Pep Albumin HDL Cholesterol Digoxin 09/09/17 09/09/17 09/09/17 06:37 06:37 16:30 Lymph % (Auto) Cow[place] % (Auto) Eos % (Auto) Lymph # Seg Neutrophils % PT 15.3 H INR 1.15 H Sodium 136 L Chloride BUN 22 H Glucose 118 H POC Glucose 250 H Calcium 7.9 L Total Creatine Kinase CK-MB (CK-2) Rel Index NT-Pro-B Natriuret Pep Albumin HDL Cholesterol Digoxin 09/09/17 09/10/17 09/10/17 22:00 06:28 13:12 Lymph % (Auto) [place] % (Auto) Eos % (Auto) Lymph # Seg Neutrophils % PT INR Sodium Chloride BUN Glucose POC Glucose 161 H 166 H 163 H Calcium Total Creatine Kinase CK-MB (CK-2) Rel Index NT-Pro-B Natriuret Pep Albumin HDL Cholesterol Digoxin 09/10/17 09/10/17 09/11/17 17:34 21:13 06:20 Lymph % (Auto) Cow[place] % (Auto) Eos % (Auto) Lymph # Seg Neutrophils % PT INR Sodium Chloride BUN Glucose POC Glucose 160 H 136 H 185 H Calcium Total Creatine Kinase CK-MB (CK-2) Rel Index NT-Pro-B Natriuret Pep Albumin HDL Cholesterol Digoxin 09/11/17 09/11/17 09/11/17 07:46 12:32 16:17 Lymph % (Auto) Cow[place] % (Auto) Eos % (Auto) Lymph # Seg Neutrophils % PT 16.5 H INR 1.26 H Sodium Chloride BUN Glucose POC Glucose 149 H 196 H Calcium Total Creatine Kinase CK-MB (CK-2) Rel Index NT-Pro-B Natriuret Pep Albumin HDL Cholesterol Digoxin 09/11/17 09/12/17 09/12/17 20:19 07:45 10:31 Lymph % (Auto) Cowley % (Auto) Eos % (Auto) Lymph # Seg Neutrophils % PT 19.1 H INR 1.51 H Sodium Chloride BUN Glucose POC Glucose 144 H 159 H Calcium Total Creatine Kinase CK-MB (CK-2) Rel Index NT-Pro-B Natriuret Pep Albumin HDL Cholesterol Digoxin 09/12/17 12:04 Lymph % (Auto) Cowley % (Auto) Eos % (Auto) Lymph # Seg Neutrophils % PT INR Sodium Chloride BUN Glucose POC Glucose 160 H Calcium Total Creatine Kinase CK-MB (CK-2) Rel Index NT-Pro-B Natriuret Pep Albumin HDL Cholesterol Digoxin
[2017-09-12] MEDS: TYLENOL PO PRN (15:14)
--- NOTE | 2017-09-12 16:10 | Discharge Summary ---
Providers - Providers Date of Admission: 09/07/17 23:45 Date of discharge: 09/12/17 Attending physician: KATIE SIMMONS 09/08/17 02:38 Consult to Physician [CONS] Routine Comment: Consulting Provider: COLLIN DAVALOS Physician Instructions: Reason For Exam: pleural effusion, chf 09/11/17 18:24 Occupational Therapy Evaluate and Treat [CONS] Routine Comment: Reason For Exam: Neuro deficits Physical Therapy Evaluation and Treat [CONS] Routine Comment: Reason For Exam: Neuro deficits 09/11/17 18:25 Speech Therapy Evaluation and Treat [CONS] Routine Reason For Exam: swallow eval 09/12/17 12:08 Consult to Physician [CONS] Routine Comment: Consulting Provider: ISAIAH ROSS Physician Instructions: Reason For Exam: acute stroke 09/12/17 13:17 Consult to Case Management [CONS] Routine Services Needed at Discharge: [employer] Notified:: YES Phone number called:: [phone] Was contact made?: Yes If yes, spoke with:: ODALYS Comment:: substance abuse outpatient Additional Physician Instructions: 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 2.Follow up with Dr. Ross, neurology in 1 week. 3.Follow up with Dr. Lr in 1 week. 4.Check INR on Thursday 09/14 at office of PCP or Dr. Lr, cardiology. 5.Avoid Amphetanmine and other illicit drugs. 6.Follow up at [facility] for substrance abuse follow up. Follow up with: PRIMARY CARE, [Primary Care Provider] - 3-5 Days Forms: Warfarin Discharge Instruction Prescriptions: Aspirin EC [Aspirin Enteric Coated TAB] 81 mg PO QDAY #30 tablet. Azithromycin [Zithromax TAB] 500 mg PO QDAY #2 tablet Bumetanide [Bumex 1 mg tab] 1 mg PO BID #60 tab Carvedilol [Coreg] 3.125 mg PO BID #60 tablet Digoxin [Lanoxin] 0.25 mg PO DAILY@1700 #30 tablet Warfarin [Coumadin] 7.5 mg PO DAILY@1700 #30 tablet
[2017-09-12] MEDS: LANOXIN PO SCH (16:13)
[2017-09-12] MEDS: COUMADIN PO SCH ×2 (16:14)
--- NOTE | 2017-09-13 11:40 | Consultation ---
HISTORY OF PRESENT ILLNESS: This is a 62-year-old white male seen at the request Dr. Gifford. This patient is evaluated for appearance of a stroke. He had the onset of headaches, confusion, word finding difficulty and general disorganization of his thought. Review of the CT scan of the head shows that he has large area of ischemia in the right parietal occipital lobe, very much in the same pattern abuse. He has a strong history of meth abuse and admits to abusing the drug heavily, recently. He has had long history of substance abuse in the past. He has been in rehab program on multiple occasions. He is under the care of a psychiatrist or mental health specialist. PHYSICAL EXAMINATION: NEUROLOGIC: Entirely normal except that he does have some left visual field defect as well as denial of visual field and some word finding problems and some disorganization of his thinking. PLAN: At this point is to send him to rehab program. I did recommend to him . They take persons of his age, our specialists and long-term care. I do not think he is in need of any seizure medication. I would not work this up further. He certainly not in need of a brain biopsy to check for vasculitis, his methamphetamine does not have any distinguishing features that make this necessary. I would recommend blood pressure control, medical management, statin, low dose aspirin 81 mg and folic acid in the future. I will follow the patient following discharge. JOB# [id number] OLIVA/JASON
== END 2017-09-12 18:18 | disposition home or self-care (01) | DRG 194 ==
LOC: ED 16:57 → 4A 23:45
PROVIDERS: ADMIT Internal Medicine; ATTEND Internal Medicine
DX: J18.9 Pneumonia, unspecified organism (principal); I42.0 Dilated cardiomyopathy; I11.0 Hypertensive heart disease with heart failure; E11.9 Type 2 diabetes mellitus without complications; F20.9 Schizophrenia, unspecified; I48.2 Chronic atrial fibrillation; I44.7 Left bundle-branch block, unspecified; G89.29 Other chronic pain; I50.9 Heart failure, unspecified; Z82.49 Family history of ischemic heart disease and other diseases of the circulatory system; Z79.4 Long term (current) use of insulin; Z79.82 Long term (current) use of aspirin; Z79.899 Other long term (current) drug therapy; Z72.89 Other problems related to lifestyle; Z91.14 Patient's other noncompliance with medication regimen
CPT/HCPCS: 36415; 70450; 71045; 71260; 80048; 80053; 80061; 80162; 80307; 80320; 82140; 82550; 82553; 82962; 83690; 83735; 83880; 84100; 84443; 84484; 85025; 85610; 85730; 87040; 87324; 93005; 93010; 93880; 94760; 96374; 96375; A9270-GY; G0480; J0456; J0696; J1650; J1940; J2405; J7050; Q9967